=== PATIENT | female | born 1960 | race Caucasian/White ===

== ENCOUNTER 2016-05-23 18:04 | Emergency (ER) | payer OTHER, MEDICARE ==
[~2016-05-23 18:04] MED LIST: ALBU17IN2; ZEGERID
[2016-05-23] MEDS ORDERED: ASPIRIN 81 MG CHEW TABLET As Ordered ONE (18:37)
[2016-05-23] MEDS ORDERED: NITROGLYCERIN 0.4 MG SUBL TABLET As Ordered ONE (18:38)
[2016-05-23 18:39] LABS: BASO # 0.2 K/mm3 (0.0-0.2); BASO % 2.1 % (0.0-1.0); EOS # 0.2 K/mm3 (0.0-0.50); EOS % 2.1 % (0.0-3.0); LARGE UNSTAINED CELL # 0.2 K/mm3 (0.0-0.4); LARGE UNSTAINED CELL % 3.1 % (0.0-4.0); LYMPH # 3.2 K/mm3 (1.5-4.5); LYMPH % 40.7 % (24.0-44.0); MEAN CORPUSCULAR HEMOGLOBIN 29.2 pg (27.0-33.0); MEAN CORPUSCULAR HGB CONC 33.3 g/dl (32.0-36.5); MEAN CORPUSCULAR VOLUME 87.9 fl (80.0-96.0); MONO # 0.5 K/mm3 (0.0-0.8); MONO % 6.4 % (0.0-5.0); NEUTROPHILS # 3.4 K/mm3 (1.8-7.7); NEUTROPHILS % 45.5 % (36.0-66.0); PLATELET COUNT, AUTOMATED 291 k/mm3 (150-450); RED CELL DISTRIBUTION WIDTH 13.4 % (11.5-14.5); WHITE BLOOD COUNT 7.4 K/mm3 (4.0-10.0)
--- NOTE | 2016-05-23 18:54 | REP ---
Clinical: Chest pain. Technique: PA and lateral. Comparison: 11/12/2014. Findings: Mediastinum and cardiac silhouette are within normal limits and stable. Lung rojas demonstrate chronic interstitial changes including left basilar fibroatelectatic changes. No acute consolidation, effusion, or pneumothorax. Skeletal structures demonstrate age-related degenerative changes. Impression: Chronic stable changes including linear fibrosis at the left base. No obvious acute cardiopulmonary process identified. Signed by Sherman Gaona MD 05/23/2016 06:46 P
[2016-05-23 19:02] LABS: INR 0.97
[2016-05-23 19:03] LABS: ANION GAP 6 MEQ/L (8-16); BLOOD UREA NITROGEN 16 MG/DL (7-18); CALCIUM LEVEL 8.8 MG/DL (8.5-10.1); CARBON DIOXIDE LEVEL 28 MEQ/L (21-32); CHLORIDE LEVEL 110 MEQ/L (98-107); CREATININE FOR GFR 0.86 MG/DL (0.55-1.02); GLOMERULAR FILTRATION RATE > 60.0 (>51); GLUCOSE, FASTING 90 MG/DL (70-105); POTASSIUM SERUM 3.9 MEQ/L (3.5-5.1); SODIUM LEVEL 144 MEQ/L (136-145)
--- NOTE | 2016-05-23 20:11 | EDDOCDS ---
Physician Documentation [facility] Name: Marjorie Hodges Age: 55 yrs Sex: Female : 1960 Arrival Date: 05/23/2016 Time: 18:04 Bed 17 Private MD: Brendan Luna A. Disposition: 05/23/16 19:55 Discharged to Home/Self Care. Impression: Chest pain, unspecified. - Condition is Stable. - Discharge Instructions: Nonspecific Chest Pain. - Prescriptions for Aspirin 81 mg - take 1 tablet by ORAL route once daily; 90 tablet. - Medication Reconciliation, Local Pharmacy Hours form. - Follow up: Brendan Luna; When: 1 week; Reason: Recheck today's complaints, Continuance of care. Follow up: Frankie Redmond MD; When: Call to arrange an appointment; Reason: Recheck today's complaints, Continuance of care. - Problem is an acute exacerbation. - Symptoms have improved. Historical: - Allergies: Avelox (Rash); - Home Meds: 1. albuterol sulfate 90 mcg/actuation Inhl HFAA as needed - PMHx: Arthritis; Asthma; GERD; Hypertension; IBS; Lyme Disease; Sleep Apnea w/ CPAP; - PSHx: right shoulder surgery; - Social history: Smoking status: Patient states former smoker of tobacco. No barriers to communication noted, The patient speaks fluent Tajik. - Family history: Not pertinent. - : The pt / caregiver states he / she is not on anticoagulants. Home medication list is obtained from the patient. - Exposure Risk Screening:: None identified. Vital Signs: 05/23 18:05 BP 154 / 80; Pulse 70; Resp 18 S; Temp 96.8(O); Pulse Ox 100% on R/A; Weight 103.42 kg gr2 / 228 lbs (R); Height 5 ft. 7 in. (170.18 cm) (R); Pain 4/10; 18:49 BP 158 / 96; Pulse 64; Resp 18; lf1 18:53 BP 164 / 81; Pulse 65; Pain 4/10; lf1 18:05 Body Mass Index 35.71 (103.42 kg, 170.18 cm) gr2 18:49 Prior to first Nitro dose lf1 MDM: 18:16 ECG WITH READING ER PHYS+CARDIAG ordered. EDMS 18:30 Aspirin Chewable Tablet 324 mg PO once ordered. ke 18:30 NS 0.9% 1000 ml IV at 100 mL/hr continuous ordered. ke 18:30 Nitrostat 0.4 mg Sublingual every 5 minutes; hold if SBP<90mmHg.Document Pain Score ke Response to Each Dose x3 ordered. 18:30 Dial Buffer/Pulse Ox/q 30 min VS ordered. ke 18:30 IV Saline Lock ordered. ke 18:30 Rhythm Strip to chart ordered. ke 18:30 Undress patient appropriately for examination ordered. ke 18:31 Basic Metabolic Profile Ordered. EDMS 18:31 CBC with Diff Ordered. EDMS 18:31 Cardiac Injury Profile Ordered. EDMS 18:31 D-Dimer Quant Ordered. EDMS 18:31 Prothrombin Time Profile\\E\\INR Ordered. EDMS 18:31 Troponin Ordered. EDMS 18:31 Chest, 2 View (pa\\E\\lat) Ordered. EDMS 19:19 Financial registration complete. ks16 19:38 [facility] Payment Agreement was scanned into [employer] and attached to record. ks16 19:39 Basic Metabolic Profile Reviewed. ke 19:39 CBC with Diff Reviewed. ke 19:39 Cardiac Injury Profile Reviewed. ke 19:39 D-Dimer Quant Reviewed. ke 19:39 Prothrombin Time Profile\\E\\INR Reviewed. ke 19:39 Troponin Reviewed. ke 19:39 Chest, 2 View (pa\\E\\lat) Reviewed. ke Administered Medications: 18:48 Drug: Aspirin 324 mg [aspirin 81 mg chewable tablet (4 tabs)] Route: PO; lf1 18:49 Drug: NS 0.9% 1000 ml [sodium chloride 0.9 % intravenous solution] Route: IV; Rate: 100 lf1 mL/hr; Site: right antecubital; 18:49 Drug: Nitrostat 0.4 mg [Nitrostat 0.4 mg sublingual tablet (1 tabs)] Route: Sublingual; lf1 18:53 Follow up: BP 164 / 81; Pulse 65 bpm; Pain 4/10 Adult; after first Nitro dose. Pt. lf1 declines additional Nitro at this time, Reports that she has a headache and her chest pain is now a 4/10. would like to wait 10 minutes before taking another as last time she had it she reports her heart rate "got really low" Signatures: Dispatcher [employer] EDMS Elsner, Jason, GEOLOGICAL TECHNICAL OFFICER GEOLOGICAL TECHNICAL OFFICER Joie BradfordRN RN rs3 Rabia Pierce, Reg Reg ks16 Katie Chapin RN RN cf2 Cristo, Rachell ARANA lf1 The chart was reviewed and I authenticate all verbal orders and agree with the evaluation and treatment provided.Attachments: 19:38 [facility] Payment Agreement ks16 MTDD
--- NOTE | 2016-05-23 20:11 | EDDOCDS ---
Nurse's Notes [facility] Name: Marjorie Hodges Age: 55 yrs Sex: Female : 1960 Arrival Date: 05/23/2016 Time: 18:04 Bed 17 Private MD: Brendan Luna A. Diagnosis: Chest pain, unspecified Presentation: 05/23 18:11 Presenting complaint: Patient states: chest pressure since yesterday, while putting rs3 silveira in the wood stove. noticed increased pressure from epigastrium to upper neck. took aspirin 81 mg today, mild relief with pain. reports of palpitation today. SOB with exertion. 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 Adult Sepsis Screening: The patient does not have new or worsening altered mentation. Patient's respiratory rate is less than 22. Systolic blood pressure is greater than 100. Patient has a qSOFA score of 0- Negative Sepsis Screen. Suicide/Homicide risk assessment- the patient denies having any suicidal and/or homicidal ideations and does not present with any other emotional, behavioral or mental health complaints. Status: Patient is not a field service technician or dependent. Transition of care: patient was not received from another setting of care. Red Flag criteria, patient assessed and taken directly to a bed. 18:11 Acuity: GERALD Level 2 rs3 18:11 Method Of Arrival: Wheelchair rs3 Triage Assessment: 18:17 General: Appears in no apparent distress. Pain: Location: chest. HIV screening NA for rs3 this visit Offered previously. Cardiovascular: Chest pain is described as Pain is 4 out of 10 on a pain scale. radiates neck episodes are intermittent began since yesterday. Historical: - Allergies: Avelox (Rash); - Home Meds: 1. albuterol sulfate 90 mcg/actuation Inhl HFAA as needed - PMHx: Arthritis; Asthma; GERD; Hypertension; IBS; Lyme Disease; Sleep Apnea w/ CPAP; - PSHx: right shoulder surgery; - Social history: Smoking status: Patient states former smoker of tobacco. No barriers to communication noted, The patient speaks fluent Venezuelan. - Family history: Not pertinent. - : The pt / caregiver states he / she is not on anticoagulants. Home medication list is obtained from the patient. - Exposure Risk Screening:: None identified. Screenin:57 Screening information is obtained from the patient. Fall risk: No risks identified. cf2 Assistance ADL's: requires no assistance with activities of daily living. Abuse/DV Screen: The patient / caregiver reports he/she is: not in a situation that causes fear, pain or injury. Nutritional screening: No deficits noted. Advance Directives: Further advance directive information is declined. home support is adequate. Assessment: 18:30 General: Appears in no apparent distress, Behavior is appropriate for age, cooperative. srm Neurological: No deficits noted. Cardiovascular: Rhythm is regular. Cardiovascular: Reports oval pressure feeling to mid chest. Respiratory: Airway is patent Respiratory effort is even, unlabored, Breath sounds are clear bilaterally. GI: Abdomen is non- distended. Derm: No deficits noted. 19:57 Reassessment: Patient appears in no apparent distress at this time. Patient denies pain cf2 at this time. Patient states feeling better. Patient states symptoms have improved. Pain: Denies pain. EENT: No deficits noted. Cardiovascular: No deficits noted. Respiratory: No deficits noted. GI: No deficits noted. : No deficits noted. Vital Signs: 18:05 BP 154 / 80; Pulse 70; Resp 18 S; Temp 96.8(O); Pulse Ox 100% on R/A; Weight 103.42 kg gr2 (R); Height 5 ft. 7 in. (170.18 cm) (R); Pain 4/10; 18:49 BP 158 / 96; Pulse 64; Resp 18; lf1 18:53 BP 164 / 81; Pulse 65; Pain 4/10; lf1 18:05 Body Mass Index 35.71 (103.42 kg, 170.18 cm) gr2 18:49 Prior to first Nitro dose lf1 Vitals: 18:05 Log In Time: May 23, 2016 at 18:05. RN notified that patient meets Red Flag gr2 criteria. ED Course: 18:04 Patient visited by Mary Kate Berry. gr2 18:04 Brendan Luna is Private Physician. gr2 18:04 Patient moved to Waiting gr2 18:06 Patient visited by Mary Kate Berry. gr2 18:06 Patient moved to Pre RCE gr2 18:11 Patient moved to 17 rs3 18:14 Accompanied by Family Member, Patient has correct armband on for positive ct3 identification. Placed in gown. Bed in low position. Call light in reach. Side rails up X 1. shelter monitor on. Pulse ox on. NIBP on. 18:15 Patient visited by Nahomi Salgado PCA. ct3 18:15 Triage Initiated rs3 18:19 EKG done. (by ED staff). Reviewed by Jairo Durham MD. ct3 18:20 Patient visited by Nahomi Salgado PCA. ct3 18:21 [facility] ke 18:21 Patient visited by Jason Perez FNP. ke 18:21 Patient visited by Jason Perez FNP. ke 18:28 Patient visited by Karine Kumar, SUMIT. srm 18:28 The patient / caregiver is instructed regarding the plan of care and ED course. srm 18:28 Inserted saline lock: 20 gauge in right antecubital area and blood collected. srm 18:32 Patient visited by Karine Kumar, SUMIT. srm 19:02 Patient visited by Chadd Ribeiro PCA. kb5 19:08 Katie Chapin,SUMIT is Primary Nurse. cf2 19:08 Patient visited by Katie Chapin,SUMIT. cf2 19:08 Patient visited by Jason Perez FNP. ke 19:12 Chest, 2 View (pa\\E\\lat) Returned. EDMS 19:38 [facility] [place] Agreement was scanned into [employer] and attached to record. ks16 19:39 Patient visited by Jason Perez FNP. ke 19:55 Brendan Luna is Referral Physician. ke 19:55 Frankie Redmond MD is Referral Physician. ke 19:57 Patient visited by Katie Chapin,SUMIT. cf2 19:57 No procedures done that require assistance. cf2 20:10 Jnui Allred DO is Attending Physician. cf2 Administered Medications: 18:48 Drug: Aspirin 324 mg [aspirin 81 mg chewable tablet (4 tabs)] Route: PO; lf1 18:49 Drug: NS 0.9% 1000 ml [sodium chloride 0.9 % intravenous solution] Route: IV; Rate: 100 lf1 mL/hr; Site: right antecubital; 18:49 Drug: Nitrostat 0.4 mg [Nitrostat 0.4 mg sublingual tablet (1 tabs)] Route: Sublingual; lf1 18:53 Follow up: BP 164 / 81; Pulse 65 bpm; Pain 4/10 Adult; after first Nitro dose. Pt. cassidy declines additional Nitro at this time, Reports that she has a headache and her chest pain is now a 4/10. would like to wait 10 minutes before taking another as last time she had it she reports her heart rate "got really low" Intake: Order Results: Lab Order: Basic Metabolic Profile; SPEC'M 05/23/16 18:24 Test: GLUCOSE, FASTING; Value: 90; Range: 70-105; Units: MG/DL; Status: F Test: BLOOD UREA NITROGEN; Value: 16; Range: 7-18; Units: MG/DL; Status: F Test: CREATININE FOR GFR; Value: 0.86; Range: 0.55-1.02; Units: MG/DL; Status: F Test: GLOMERULAR FILTRATION RATE; Value: > 60.0; Range: >51; Status: F Test: SODIUM LEVEL; Value: 144; Range: 136-145; Units: MEQ/L; Status: F Test: POTASSIUM SERUM; Value: 3.9; Range: 3.5-5.1; Units: MEQ/L; Status: F Test: CHLORIDE LEVEL; Value: 110; Range: 98-107; Abnormal: Above high normal; Units: MEQ/L; Status: F Test: CARBON DIOXIDE LEVEL; Value: 28; Range: 21-32; Units: MEQ/L; Status: F Test: ANION GAP; Value: 6; Range: 8-16; Abnormal: Below low normal; Units: MEQ/L; Status: F Test: CALCIUM LEVEL; Value: 8.8; Range: 8.5-10.1; Units: MG/DL; Status: F Test Note: ; Units are mL/min/1.73 m2 Chronic Kidney Disease Staging per NKF: Stage I & II GFR >=60 Normal to Mildly Decreased Stage III GFR 30-59 Moderately Decreased Stage IV GFR 15-29 Severely Decreased Stage V GFR <15 Very Little GFR Left ESRD GFR <15 on CERTIFIED MEDICAL TRANSCRIPTIONIST Lab Order: CBC with Diff; SPEC'M 05/23/16 18:24 Test: WHITE BLOOD COUNT; Value: 7.4; Range: 4.0-10.0; Units: K/mm3; Status: F Test: RED BLOOD COUNT; Value: 4.53; Range: 4.00-5.40; Units: M/mm3; Status: F Test: HEMOGLOBIN; Value: 13.2; Range: 12.0-16.0; Units: g/dl; Status: F Test: HEMATOCRIT; Value: 39.8; Range: 36.0-47.0; Units: %; Status: F Test: MEAN CORPUSCULAR VOLUME; Value: 87.9; Range: 80.0-96.0; Units: fl; Status: F Test: MEAN CORPUSCULAR HEMOGLOBIN; Value: 29.2; Range: 27.0-33.0; Units: pg; Status: F Test: MEAN CORPUSCULAR HGB CONC; Value: 33.3; Range: 32.0-36.5; Units: g/dl; Status: F Test: RED CELL DISTRIBUTION WIDTH; Value: 13.4; Range: 11.5-14.5; Units: %; Status: F Test: PLATELET COUNT, AUTOMATED; Value: 291; Range: 150-450; Units: k/mm3; Status: F Test: NEUTROPHILS %; Value: 45.5; Range: 36.0-66.0; Units: %; Status: F Test: LYMPH %; Value: 40.7; Range: 24.0-44.0; Units: %; Status: F Test: MONO %; Value: 6.4; Range: 0.0-5.0; Abnormal: Above high normal; Units: %; Status: F Test: EOS %; Value: 2.1; Range: 0.0-3.0; Units: %; Status: F Test: BASO %; Value: 2.1; Range: 0.0-1.0; Abnormal: Above high normal; Units: %; Status: F Test: LARGE UNSTAINED CELL %; Value: 3.1; Range: 0.0-4.0; Units: %; Status: F Test: NEUTROPHILS #; Value: 3.4; Range: 1.8-7.7; Units: K/mm3; Status: F Test: LYMPH #; Value: 3.2; Range: 1.5-4.5; Units: K/mm3; Status: F Test: MONO #; Value: 0.5; Range: 0.0-0.8; Units: K/mm3; Status: F Test: EOS #; Value: 0.2; Range: 0.0-0.50; Units: K/mm3; Status: F Test: BASO #; Value: 0.2; Range: 0.0-0.2; Units: K/mm3; Status: F Test: LARGE UNSTAINED CELL #; Value: 0.2; Range: 0.0-0.4; Units: K/mm3; Status: F Lab Order: Cardiac Injury Profile; [facility] 05/23/16 18:24 Test: CPK CREATINE PHOSPHOKINASE; Value: 173; Range: 26-192; Units: U/L; Status: F Test: CK-MB VALUE MASS; Value: 2.2; Range: 0.0-3.6; Units: NG/ML; Status: F Test: MB/CK RELATIVE INDEX; Value: 1.27; Range: < OR =4; Status: F Test Note: ; DIAGNOSIS CRITERIA MMB ng/ml Relative Index (RI) NON-AMI < or = 5 N/A BEAUCHAMP ZONE > 5 < or = 4 AMI > 5 > 4 Lab Order: D-Dimer Quant; [facility] 05/23/16 18:24 Test: D-DIMER QUANT; Value: < 270.0; Range: <500; Units: ng/ml; Status: F Lab Order: Prothrombin Time Profile\\E\\INR; [facility] 05/23/16 18:24 Test: PROTHROMBIN TIME; Value: 13.0; Range: 12.3-14.5; Units: SECONDS; Status: F Test: INR; Value: 0.97; Status: F Test Note: ; THERAPUTIC HUMAN INR VALUES INDICATIONS NORMAL RANGES PROPHYLAXIS/TREATMENT OF: VENOUS THROMBOSIS 2.0-3.0 PULMONARY EMBOLISM 2.0-3.0 PREVENTION OF SYSTEMIC EMBOLISM FROM: TISSUE HEART VALVES 2.0-3.0 ACUTE MYOCARDIAL INFARCTION 2.0-3.0 VALVULAR HEART DISEASE 2.0-3.0 ATRIAL FIBRILLATION 2.0-3.0 MECHANICAL VALVES(HIGH RISK) 2.5-3.5 RECURRENT MYOCARDIAL INFARCTION 2.5-3.5 Lab Order: Troponin; [facility] 05/23/16 1824 Test: TROPONIN I; Value: < 0.02; Range: < 0.10; Units: NG/ML; Status: F Test Note: ; Troponin I Reference Interval for Siemens Promon LOCI: 99th Percentile= 0.00-0.045 ng/ml Risk Stratification: <= 0.10 ng/ml Decreased Risk for Adverse Clinical Events. 0.10-1.50 ng/ml Increased Risk for Adverse Clinical Events. Evaluation of additional criterion and/or repeat testing in 2-6 hours is suggested to rule out myocardial damage. >= 1.50 ng/ml Indicative of Myocardial Injury. Radiology Order: Chest, 2 View (pa\\E\\lat) Test: Chest, 2 View (pa\\E\\lat) REASON FOR EXAMINATION: Chest Pain; Clinical: Chest pain.; ; Technique: PA and lateral.; ; Comparison: 11/12/2014.; ; Findings:; Mediastinum and cardiac silhouette are within normal limits and stable. Lung; roajs demonstrate chronic interstitial changes including left basilar; fibroatelectatic changes. No acute consolidation, effusion, or pneumothorax.; Skeletal structures demonstrate age-related degenerative changes.; ; Impression:; Chronic stable changes including linear fibrosis at the left base. No obvious; acute cardiopulmonary process identified.; ; ; Signed by; Sherman Gaona MD 05/23/2016 06:46 P; Outcome: 19:55 Discharge ordered by Provider. ke 19:57 The following High Risk Discharge criteria are identified: None. Condition: good cf2 Condition: stable Condition: improved. Discharge instructions given to patient, family, Instructed on discharge instructions, follow up and referral plans. Demonstrated understanding of instructions. No special radiology studies were completed. Property :Personal belongings accompany Pt. 20:09 Discharge Assessment: Patient awake, alert and oriented x 3. No cognitive and/or cf2 functional deficits noted. Patient verbalized understanding of disposition instructions. Patient awake and alert. Oriented to person, place and time. patient administered narcotics - no. 20:10 Patient left the ED. cf2 Signatures: Dispatcher [employer] EDMS Karine Kumar, RN RN Jason Bee, PHOTOGRAPH MOUNTER PHOTOGRAPH MOUNTER Chadd Garcia, STEAM TRAP MAN STEAM TRAP MAN kb5 Rachell Lemons RN RN lf1 Joie Smith RN RN rs3 Nahomi Salgado, STEAM TRAP MAN STEAM TRAP MAN ct3 Mary Kate Berry gr2 Rabia Pierce, Reg Reg ks16 Katie Chapin,RN RN cf2 MTDD
--- NOTE | 2016-05-24 08:33 | ECGEPIP ---
Stationary ECG Study [facility] - ED Test Date: 2016-05-23 Pat Name: MIKAELA MOORE Department: Room: - Gender: F Criminal Psychologist: osorio : 1960 Requested By: Jairo Perez Order Number: [id number] Reading MD: Jairo Durham Measurements Intervals [place] Rate: 62 P: 52 IN: 184 QRS: 3 QRSD: 102 T: -71 QT: 418 QTc: 426 Interpretive Statements SINUS RHYTHM WITH OCCASIONAL SUPRAVENTRICULAR PREMATURE COMPLEXES MODERATE T-WAVE ABNORMALITY SIMILAR TO 11/12/14 Electronically Signed On 05-24-2016 8:32:48 EST by Jairo Durham
--- NOTE | 2016-05-25 21:11 | EDDOCDS ---
Nurse's Notes [facility] Name: Marjorie Moore Age: 55 yrs Sex: Female : 1960 Arrival Date: 05/23/2016 Time: 18:04 Bed 17 Private MD: Brendan Luna A. Diagnosis: Chest pain, unspecified Presentation: 05/23 18:11 Presenting complaint: Patient states: chest pressure since yesterday, while putting rs3 silveira in the wood stove. noticed increased pressure from epigastrium to upper neck. took aspirin 81 mg today, mild relief with pain. reports of palpitation today. SOB with exertion. 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 Adult Sepsis Screening: The patient does not have new or worsening altered mentation. Patient's respiratory rate is less than 22. Systolic blood pressure is greater than 100. Patient has a qSOFA score of 0- Negative Sepsis Screen. Suicide/Homicide risk assessment- the patient denies having any suicidal and/or homicidal ideations and does not present with any other emotional, behavioral or mental health complaints. Status: Patient is not a child and family services specialist or dependent. Transition of care: patient was not received from another setting of care. Red Flag criteria, patient assessed and taken directly to a bed. 18:11 Acuity: GERALD Level 2 rs3 18:11 Method Of Arrival: Wheelchair rs3 Triage Assessment: 18:17 General: Appears in no apparent distress. Pain: Location: chest. HIV screening NA for rs3 this visit Offered previously. Cardiovascular: Chest pain is described as Pain is 4 out of 10 on a pain scale. radiates neck episodes are intermittent began since yesterday. Historical: - Allergies: Avelox (Rash); - Home Meds: 1. albuterol sulfate 90 mcg/actuation Inhl HFAA as needed - PMHx: Arthritis; Asthma; GERD; Hypertension; IBS; Lyme Disease; Sleep Apnea w/ CPAP; - PSHx: right shoulder surgery; - Social history: Smoking status: Patient states former smoker of tobacco. No barriers to communication noted, The patient speaks fluent Greenlandic. - Family history: Not pertinent. - : The pt / caregiver states he / she is not on anticoagulants. Home medication list is obtained from the patient. - Exposure Risk Screening:: None identified. Screenin:57 Screening information is obtained from the patient. Fall risk: No risks identified. cf2 Assistance ADL's: requires no assistance with activities of daily living. Abuse/DV Screen: The patient / caregiver reports he/she is: not in a situation that causes fear, pain or injury. Nutritional screening: No deficits noted. Advance Directives: Further advance directive information is declined. home support is adequate. Assessment: 18:30 General: Appears in no apparent distress, Behavior is appropriate for age, cooperative. srm Neurological: No deficits noted. Cardiovascular: Rhythm is regular. Cardiovascular: Reports oval pressure feeling to mid chest. Respiratory: Airway is patent Respiratory effort is even, unlabored, Breath sounds are clear bilaterally. GI: Abdomen is non- distended. Derm: No deficits noted. 19:57 Reassessment: Patient appears in no apparent distress at this time. Patient denies pain cf2 at this time. Patient states feeling better. Patient states symptoms have improved. Pain: Denies pain. EENT: No deficits noted. Cardiovascular: No deficits noted. Respiratory: No deficits noted. GI: No deficits noted. : No deficits noted. Vital Signs: 18:05 BP 154 / 80; Pulse 70; Resp 18 S; Temp 96.8(O); Pulse Ox 100% on R/A; Weight 103.42 kg gr2 (R); Height 5 ft. 7 in. (170.18 cm) (R); Pain 4/10; 18:49 BP 158 / 96; Pulse 64; Resp 18; lf1 18:53 BP 164 / 81; Pulse 65; Pain 4/10; lf1 18:05 Body Mass Index 35.71 (103.42 kg, 170.18 cm) gr2 18:49 Prior to first Nitro dose lf1 Vitals: 18:05 Log In Time: May 23, 2016 at 18:05. RN notified that patient meets Red Flag gr2 criteria. ED Course: 18:04 Patient visited by Mary Kate Berry. gr2 18:04 Brendan Luna is Private Physician. gr2 18:04 Patient moved to Waiting gr2 18:06 Patient visited by Mary Kate Berry. gr2 18:06 Patient moved to Pre RCE gr2 18:11 Patient moved to 17 rs3 18:14 Accompanied by Family Member, Patient has correct armband on for positive ct3 identification. Placed in gown. Bed in low position. Call light in reach. Side rails up X 1. awake overnight monitor on. Pulse ox on. NIBP on. 18:15 Patient visited by Nahomi Salgado PCA. ct3 18:15 Triage Initiated rs3 18:19 EKG done. (by ED staff). Reviewed by Jairo Durham MD. ct3 18:20 Patient visited by Nahomi Salgado PCA. ct3 18:21 [facility]. ke 18:21 Patient visited by Jason Perez FNP. ke 18:21 Patient visited by Jason Perez FNP. ke 18:28 Patient visited by Karine Kumar, SUMIT. srm 18:28 The patient / caregiver is instructed regarding the plan of care and ED course. srm 18:28 Inserted saline lock: 20 gauge in right antecubital area and blood collected. srm 18:32 Patient visited by Karine Kumar, SUMIT. srm 19:02 Patient visited by Chadd Ribeiro PCA. kb5 19:08 Katie Chapin,SUMIT is Primary Nurse. cf2 19:08 Patient visited by Katie Chapin,SUMIT. cf2 19:08 Patient visited by Jason Perez FNP. ke 19:12 Chest, 2 View (pa\\E\\lat) Returned. EDMS 19:38 [facility] Payment Agreement was scanned into [email or web address] and attached to record. ks16 19:39 Patient visited by Jason Perez FNP. ke 19:55 Brendan Luna is Referral Physician. ke 19:55 Frankie Redmond MD is Referral Physician. ke 19:57 Patient visited by Katie Chapin,SUMIT. cf2 19:57 No procedures done that require assistance. cf2 20:10 Juni Allred DO is Attending Physician. cf2 05/24 09:06 EKG-ADULT Returned. EDMS 12:16 T-Sheet-- Draft Copy was scanned into [email or web address] and attached to record. gb 12:17 ECG/EKG was scanned into [email or web address] and attached to record. gb Administered Medications: 05/23 18:48 Drug: Aspirin 324 mg [aspirin 81 mg chewable tablet (4 tabs)] Route: PO; lf1 18:49 Drug: NS 0.9% 1000 ml [sodium chloride 0.9 % intravenous solution] Route: IV; Rate: 100 lf1 mL/hr; Site: right antecubital; 18:49 Drug: Nitrostat 0.4 mg [Nitrostat 0.4 mg sublingual tablet (1 tabs)] Route: Sublingual; lf1 18:53 Follow up: BP 164 / 81; Pulse 65 bpm; Pain 4/10 Adult; after first Nitro dose. Pt. lf1 declines additional Nitro at this time, Reports that she has a headache and her chest pain is now a 4/10. would like to wait 10 minutes before taking another as last time she had it she reports her heart rate "got really low" Intake: Order Results: Lab Order: Basic Metabolic Profile; SPEC'M 05/23/16 18:24 Test: GLUCOSE, FASTING; Value: 90; Range: 70-105; Units: MG/DL; Status: F Test: BLOOD UREA NITROGEN; Value: 16; Range: 7-18; Units: MG/DL; Status: F Test: CREATININE FOR GFR; Value: 0.86; Range: 0.55-1.02; Units: MG/DL; Status: F Test: GLOMERULAR FILTRATION RATE; Value: > 60.0; Range: >51; Status: F Test: SODIUM LEVEL; Value: 144; Range: 136-145; Units: MEQ/L; Status: F Test: POTASSIUM SERUM; Value: 3.9; Range: 3.5-5.1; Units: MEQ/L; Status: F Test: CHLORIDE LEVEL; Value: 110; Range: 98-107; Abnormal: Above high normal; Units: MEQ/L; Status: F Test: CARBON DIOXIDE LEVEL; Value: 28; Range: 21-32; Units: MEQ/L; Status: F Test: ANION GAP; Value: 6; Range: 8-16; Abnormal: Below low normal; Units: MEQ/L; Status: F Test: CALCIUM LEVEL; Value: 8.8; Range: 8.5-10.1; Units: MG/DL; Status: F Test Note: ; Units are mL/min/1.73 m2 Chronic Kidney Disease Staging per NKF: Stage I & II GFR >=60 Normal to Mildly Decreased Stage III GFR 30-59 Moderately Decreased Stage IV GFR 15-29 Severely Decreased Stage V GFR <15 Very Little GFR Left ESRD GFR <15 on REFINISH TECHNICIAN Lab Order: CBC with Diff; SPEC'M 05/23/16 18:24 Test: WHITE BLOOD COUNT; Value: 7.4; Range: 4.0-10.0; Units: K/mm3; Status: F Test: RED BLOOD COUNT; Value: 4.53; Range: 4.00-5.40; Units: M/mm3; Status: F Test: HEMOGLOBIN; Value: 13.2; Range: 12.0-16.0; Units: g/dl; Status: F Test: HEMATOCRIT; Value: 39.8; Range: 36.0-47.0; Units: %; Status: F Test: MEAN CORPUSCULAR VOLUME; Value: 87.9; Range: 80.0-96.0; Units: fl; Status: F Test: MEAN CORPUSCULAR HEMOGLOBIN; Value: 29.2; Range: 27.0-33.0; Units: pg; Status: F Test: MEAN CORPUSCULAR HGB CONC; Value: 33.3; Range: 32.0-36.5; Units: g/dl; Status: F Test: RED CELL DISTRIBUTION WIDTH; Value: 13.4; Range: 11.5-14.5; Units: %; Status: F Test: PLATELET COUNT, AUTOMATED; Value: 291; Range: 150-450; Units: k/mm3; Status: F Test: NEUTROPHILS %; Value: 45.5; Range: 36.0-66.0; Units: %; Status: F Test: LYMPH %; Value: 40.7; Range: 24.0-44.0; Units: %; Status: F Test: MONO %; Value: 6.4; Range: 0.0-5.0; Abnormal: Above high normal; Units: %; Status: F Test: EOS %; Value: 2.1; Range: 0.0-3.0; Units: %; Status: F Test: BASO %; Value: 2.1; Range: 0.0-1.0; Abnormal: Above high normal; Units: %; Status: F Test: LARGE UNSTAINED CELL %; Value: 3.1; Range: 0.0-4.0; Units: %; Status: F Test: NEUTROPHILS #; Value: 3.4; Range: 1.8-7.7; Units: K/mm3; Status: F Test: LYMPH #; Value: 3.2; Range: 1.5-4.5; Units: K/mm3; Status: F Test: MONO #; Value: 0.5; Range: 0.0-0.8; Units: K/mm3; Status: F Test: EOS #; Value: 0.2; Range: 0.0-0.50; Units: K/mm3; Status: F Test: BASO #; Value: 0.2; Range: 0.0-0.2; Units: K/mm3; Status: F Test: LARGE UNSTAINED CELL #; Value: 0.2; Range: 0.0-0.4; Units: K/mm3; Status: F Lab Order: Cardiac Injury Profile; [facility] 05/23/16 18:24 Test: CPK CREATINE PHOSPHOKINASE; Value: 173; Range: 26-192; Units: U/L; Status: F Test: CK-MB VALUE MASS; Value: 2.2; Range: 0.0-3.6; Units: NG/ML; Status: F Test: MB/CK RELATIVE INDEX; Value: 1.27; Range: < OR =4; Status: F Test Note: ; DIAGNOSIS CRITERIA MMB ng/ml Relative Index (RI) NON-AMI < or = 5 N/A BEAUCHAMP ZONE > 5 < or = 4 AMI > 5 > 4 Lab Order: D-Dimer Quant; [facility] 05/23/16 18:24 Test: D-DIMER QUANT; Value: < 270.0; Range: <500; Units: ng/ml; Status: F Lab Order: Prothrombin Time Profile\\E\\INR; [facility] 05/23/16 18:24 Test: PROTHROMBIN TIME; Value: 13.0; Range: 12.3-14.5; Units: SECONDS; Status: F Test: INR; Value: 0.97; Status: F Test Note: ; THERAPUTIC HUMAN INR VALUES INDICATIONS NORMAL RANGES PROPHYLAXIS/TREATMENT OF: VENOUS THROMBOSIS 2.0-3.0 PULMONARY EMBOLISM 2.0-3.0 PREVENTION OF SYSTEMIC EMBOLISM FROM: TISSUE HEART VALVES 2.0-3.0 ACUTE MYOCARDIAL INFARCTION 2.0-3.0 VALVULAR HEART DISEASE 2.0-3.0 ATRIAL FIBRILLATION 2.0-3.0 MECHANICAL VALVES(HIGH RISK) 2.5-3.5 RECURRENT MYOCARDIAL INFARCTION 2.5-3.5 Lab Order: Troponin; SPEC'M 05/23/16 18:24 Test: TROPONIN I; Value: < 0.02; Range: < 0.10; Units: NG/ML; Status: F Test Note: ; Troponin I Reference Interval for Siemens [place] LOCI: 99th Percentile= 0.00-0.045 ng/ml Risk Stratification: <= 0.10 ng/ml Decreased Risk for Adverse Clinical Events. 0.10-1.50 ng/ml Increased Risk for Adverse Clinical Events. Evaluation of additional criterion and/or repeat testing in 2-6 hours is suggested to rule out myocardial damage. >= 1.50 ng/ml Indicative of Myocardial Injury. Radiology Order: EKG-ADULT Test: EKG-ADULT REASON FOR EXAMINATION: chest pressure; Stationary ECG Study; [facility] - ED; ; Test Date: 2016-05-23; Pat Name: MARJORIE MOORE Department:; Room: -; Gender: F Land Mobile Radio Technician: osorio; : 1960 Requested By: Jairo Perez; Order Number: [id number] Reading MD: Jairo Durham; Measurements; Intervals [place]; Rate: 62 P: 52; DC: 184 QRS: 3; QRSD: 102 T: -71; QT: 418; QTc: 426; Interpretive Statements; SINUS RHYTHM WITH OCCASIONAL SUPRAVENTRICULAR PREMATURE COMPLEXES; MODERATE T-WAVE ABNORMALITY; SIMILAR TO 11/12/14; ; Electronically Signed On 05-24-2016 8:32:48 EST by Jairo Durham; Radiology Order: Chest, 2 View (pa\\E\\lat) Test: Chest, 2 View (pa\\E\\lat) REASON FOR EXAMINATION: Chest Pain; Clinical: Chest pain.; ; Technique: PA and lateral.; ; Comparison: 11/12/2014.; ; Findings:; Mediastinum and cardiac silhouette are within normal limits and stable. Lung; rojas demonstrate chronic interstitial changes including left basilar; fibroatelectatic changes. No acute consolidation, effusion, or pneumothorax.; Skeletal structures demonstrate age-related degenerative changes.; ; Impression:; Chronic stable changes including linear fibrosis at the left base. No obvious; acute cardiopulmonary process identified.; ; ; Signed by; Sherman Gaona MD 05/23/2016 06:46 P; Outcome: 19:55 Discharge ordered by Provider. ke 19:57 The following High Risk Discharge criteria are identified: None. Condition: good cf2 Condition: stable Condition: improved. Discharge instructions given to patient, family, Instructed on discharge instructions, follow up and referral plans. Demonstrated understanding of instructions. No special radiology studies were completed. Property :Personal belongings accompany Pt. 20:09 Discharge Assessment: Patient awake, alert and oriented x 3. No cognitive and/or cf2 functional deficits noted. Patient verbalized understanding of disposition instructions. Patient awake and alert. Oriented to person, place and time. patient administered narcotics - no. 20:10 Patient left the ED. cf2 Signatures: Dispatcher [employer] EDMS Karine Kumar, RN RN [facility] Aruna Callejas, Reg Reg gb Jason Perez, LOG PROCESSOR OPERATOR LOG PROCESSOR OPERATOR Chadd Garcia, STRUCTURAL IRON ERECTOR STRUCTURAL IRON ERECTOR kb5 Rachell Leomns,RN RN lf1 Joie Smith,RN RN rs3 Nahomi Salgado, STRUCTURAL IRON ERECTOR STRUCTURAL IRON ERECTOR ct3 Mary Kate Berry gr2 Rabia Pierce, Reg Reg ks16 Katie Chapin,RN RN cf2 Chart Complete MTDD
--- NOTE | 2016-05-25 21:11 | EDDOCDS ---
Physician Documentation [facility] Name: Marjorie Hodges Age: 55 yrs Sex: Female : 1960 Arrival Date: 05/23/2016 Time: 18:04 Bed 17 Private MD: Brendan Luna A. Disposition: 05/23/16 19:55 Discharged to Home/Self Care. Impression: Chest pain, unspecified. - Condition is Stable. - Discharge Instructions: Nonspecific Chest Pain. - Prescriptions for Aspirin 81 mg - take 1 tablet by ORAL route once daily; 90 tablet. - Medication Reconciliation, Local Pharmacy Hours form. - Follow up: Brendan Luna; When: 1 week; Reason: Recheck today's complaints, Continuance of care. Follow up: Frankie Redmond MD; When: Call to arrange an appointment; Reason: Recheck today's complaints, Continuance of care. - Problem is an acute exacerbation. - Symptoms have improved. Historical: - Allergies: Avelox (Rash); - Home Meds: 1. albuterol sulfate 90 mcg/actuation Inhl HFAA as needed - PMHx: Arthritis; Asthma; GERD; Hypertension; IBS; Lyme Disease; Sleep Apnea w/ CPAP; - PSHx: right shoulder surgery; - Social history: Smoking status: Patient states former smoker of tobacco. No barriers to communication noted, The patient speaks fluent Amharic. - Family history: Not pertinent. - : The pt / caregiver states he / she is not on anticoagulants. Home medication list is obtained from the patient. - Exposure Risk Screening:: None identified. Vital Signs: 05/23 18:05 BP 154 / 80; Pulse 70; Resp 18 S; Temp 96.8(O); Pulse Ox 100% on R/A; Weight 103.42 kg gr2 / 228 lbs (R); Height 5 ft. 7 in. (170.18 cm) (R); Pain 4/10; 18:49 BP 158 / 96; Pulse 64; Resp 18; lf1 18:53 BP 164 / 81; Pulse 65; Pain 4/10; lf1 18:05 Body Mass Index 35.71 (103.42 kg, 170.18 cm) gr2 18:49 Prior to first Nitro dose lf1 MDM: 18:16 ECG WITH READING ER PHYS+CARDIAG ordered. EDMS 18:30 Aspirin Chewable Tablet 324 mg PO once ordered. ke 18:30 NS 0.9% 1000 ml IV at 100 mL/hr continuous ordered. ke 18:30 Nitrostat 0.4 mg Sublingual every 5 minutes; hold if SBP<90mmHg.Document Pain Score ke Response to Each Dose x3 ordered. 18:30 Insurance Investigator/Pulse Ox/q 30 min VS ordered. ke 18:30 IV Saline Lock ordered. ke 18:30 Rhythm Strip to chart ordered. ke 18:30 Undress patient appropriately for examination ordered. ke 18:31 Basic Metabolic Profile Ordered. EDMS 18:31 CBC with Diff Ordered. EDMS 18:31 Cardiac Injury Profile Ordered. EDMS 18:31 D-Dimer Quant Ordered. EDMS 18:31 Prothrombin Time Profile\\E\\INR Ordered. EDMS 18:31 Troponin Ordered. EDMS 18:31 Chest, 2 View (pa\\E\\lat) Ordered. EDMS 19:19 Financial registration complete. [email or web address] 19:38 [facility] Payment Agreement was scanned into [employer] and attached to record. ks16 19:39 Basic Metabolic Profile Reviewed. ke 19:39 CBC with Diff Reviewed. ke 19:39 Cardiac Injury Profile Reviewed. ke 19:39 D-Dimer Quant Reviewed. ke 19:39 Prothrombin Time Profile\\E\\INR Reviewed. ke 19:39 Troponin Reviewed. ke 19:39 Chest, 2 View (pa\\E\\lat) Reviewed. ke 05/24 12:16 T-Sheet-- Draft Copy was scanned into [employer] and attached to record. 12:17 ECG/EKG was scanned into [employer] and attached to record. gb Administered Medications: 05/23 18:48 Drug: Aspirin 324 mg [aspirin 81 mg chewable tablet (4 tabs)] Route: PO; lf1 18:49 Drug: NS 0.9% 1000 ml [sodium chloride 0.9 % intravenous solution] Route: IV; Rate: 100 lf1 mL/hr; Site: right antecubital; 18:49 Drug: Nitrostat 0.4 mg [Nitrostat 0.4 mg sublingual tablet (1 tabs)] Route: Sublingual; lf1 18:53 Follow up: BP 164 / 81; Pulse 65 bpm; Pain 4/10 Adult; after first Nitro dose. Pt. lf1 declines additional Nitro at this time, Reports that she has a headache and her chest pain is now a 4/10. would like to wait 10 minutes before taking another as last time she had it she reports her heart rate "got really low" Signatures: Dispatcher [employer] EDAruna Pinzon, Reg Reg gb Jason Perez, RENAL DIALYSIS TECHNICIAN RENAL DIALYSIS TECHNICIAN Joie Bradford RN RN rs3 Rabia Pierce, Reg Reg ks16 Katie Chapin RN RN cf2 Cristo, Rachell ARANA lf1 The chart was reviewed and I authenticate all verbal orders and agree with the evaluation and treatment provided.Attachments: 19:38 [facility] Payment Agreement [email or web address] 05/24 12:16 T-Sheet-- Draft Copy 12:17 ECG/EKG Chart Complete MTDD
--- NOTE | 2016-05-25 21:11 | EDDOCDS ---
Physician Documentation [facility] Name: Marjorie Hodges Age: 55 yrs Sex: Female : 1960 Arrival Date: 05/23/2016 Time: 18:04 Bed 17 Private MD: Brendan Luna A. Disposition: 05/23/16 19:55 Discharged to Home/Self Care. Impression: Chest pain, unspecified. - Condition is Stable. - Discharge Instructions: Nonspecific Chest Pain. - Prescriptions for Aspirin 81 mg - take 1 tablet by ORAL route once daily; 90 tablet. - Medication Reconciliation, Local Pharmacy Hours form. - Follow up: Brendan Luna; When: 1 week; Reason: Recheck today's complaints, Continuance of care. Follow up: Frankie Redmond MD; When: Call to arrange an appointment; Reason: Recheck today's complaints, Continuance of care. - Problem is an acute exacerbation. - Symptoms have improved. Historical: - Allergies: Avelox (Rash); - Home Meds: 1. albuterol sulfate 90 mcg/actuation Inhl HFAA as needed - PMHx: Arthritis; Asthma; GERD; Hypertension; IBS; Lyme Disease; Sleep Apnea w/ CPAP; - PSHx: right shoulder surgery; - Social history: Smoking status: Patient states former smoker of tobacco. No barriers to communication noted, The patient speaks fluent Estonian. - Family history: Not pertinent. - : The pt / caregiver states he / she is not on anticoagulants. Home medication list is obtained from the patient. - Exposure Risk Screening:: None identified. Vital Signs: 05/23 18:05 BP 154 / 80; Pulse 70; Resp 18 S; Temp 96.8(O); Pulse Ox 100% on R/A; Weight 103.42 kg gr2 / 228 lbs (R); Height 5 ft. 7 in. (170.18 cm) (R); Pain 4/10; 18:49 BP 158 / 96; Pulse 64; Resp 18; lf1 18:53 BP 164 / 81; Pulse 65; Pain 4/10; lf1 18:05 Body Mass Index 35.71 (103.42 kg, 170.18 cm) gr2 18:49 Prior to first Nitro dose lf1 MDM: 18:16 ECG WITH READING ER PHYS+CARDIAG ordered. EDMS 18:30 Aspirin Chewable Tablet 324 mg PO once ordered. ke 18:30 NS 0.9% 1000 ml IV at 100 mL/hr continuous ordered. ke 18:30 Nitrostat 0.4 mg Sublingual every 5 minutes; hold if SBP<90mmHg.Document Pain Score ke Response to Each Dose x3 ordered. 18:30 Table Games Floor Supervisor/Pulse Ox/q 30 min VS ordered. ke 18:30 IV Saline Lock ordered. ke 18:30 Rhythm Strip to chart ordered. ke 18:30 Undress patient appropriately for examination ordered. ke 18:31 Basic Metabolic Profile Ordered. EDMS 18:31 CBC with Diff Ordered. EDMS 18:31 Cardiac Injury Profile Ordered. EDMS 18:31 D-Dimer Quant Ordered. EDMS 18:31 Prothrombin Time Profile\\E\\INR Ordered. EDMS 18:31 Troponin Ordered. EDMS 18:31 Chest, 2 View (pa\\E\\lat) Ordered. EDMS 19:19 Financial registration complete. [email or web address] 19:38 [facility] Payment Agreement was scanned into [employer] and attached to record. [email or web address] 19:39 Basic Metabolic Profile Reviewed. ke 19:39 CBC with Diff Reviewed. ke 19:39 Cardiac Injury Profile Reviewed. ke 19:39 D-Dimer Quant Reviewed. ke 19:39 Prothrombin Time Profile\\E\\INR Reviewed. ke 19:39 Troponin Reviewed. ke 19:39 Chest, 2 View (pa\\E\\lat) Reviewed. ke 05/24 12:16 T-Sheet-- Draft Copy was scanned into [employer] and attached to record. 12:17 ECG/EKG was scanned into [employer] and attached to record. gb Administered Medications: 05/23 18:48 Drug: Aspirin 324 mg [aspirin 81 mg chewable tablet (4 tabs)] Route: PO; lf1 18:49 Drug: NS 0.9% 1000 ml [sodium chloride 0.9 % intravenous solution] Route: IV; Rate: 100 lf1 mL/hr; Site: right antecubital; 18:49 Drug: Nitrostat 0.4 mg [Nitrostat 0.4 mg sublingual tablet (1 tabs)] Route: Sublingual; lf1 18:53 Follow up: BP 164 / 81; Pulse 65 bpm; Pain 4/10 Adult; after first Nitro dose. Pt. lf1 declines additional Nitro at this time, Reports that she has a headache and her chest pain is now a 4/10. would like to wait 10 minutes before taking another as last time she had it she reports her heart rate "got really low" Signatures: Dispatcher [employer] EDAruna Pinzon, Reg Reg gb Jason Perez, BALLAST CLEANING OPERATOR BALLAST CLEANING OPERATOR Joie Bradford RN RN rs3 Rabia Pierce, Reg Reg ks16 Katie Chapin RN RN cf2 Cristo, Rachell ARANA lf1 The chart was reviewed and I authenticate all verbal orders and agree with the evaluation and treatment provided.Attachments: 19:38 [facility] Payment Agreement [email or web address] 05/24 12:16 T-Sheet-- Draft Copy 12:17 ECG/EKG Chart Complete MTDD
== END 2016-05-23 20:10 | disposition home or self-care (01) ==
LOC: M ED 18:04
DX: R07.89 Other chest pain (principal); I10 Essential (primary) hypertension; J45.909 Unspecified asthma, uncomplicated; Z87.891 Personal history of nicotine dependence; G47.30 Sleep apnea, unspecified; K21.9 Gastro-esophageal reflux disease without esophagitis; M19.90 Unspecified osteoarthritis, unspecified site; K58.9 Irritable bowel syndrome, unspecified; A69.20 Lyme disease, unspecified; Z88.1 Allergy status to other antibiotic agents

== ENCOUNTER → 2016-07-17 | Outpatient (CLI) | payer OTHER, MEDICARE ==
[~2016-07-17] MED LIST changes: +METHACHOLINE KIT (J7674) INH ONE
--- NOTE | 2016-07-17 09:02 | PFTRPT ---
METHACHOLINE CHALLENGE STUDY INTERPRETATION: Under protocol, methacholine was administered. At a dose of 2.5 mg (13.875 CDUs ), a 20% decline in the FEV1 was noted. The PC20 of 2.12 is significant. Flow rates returned to baseline post bronchodilator administration. IMPRESSION: Positive methacholine challenge study. MTDD
== END ==
LOC: M CARPUL 08:03
PROVIDERS: ATTEND Internal Medicine Pulmonary Disease
DX: R05 Cough (principal)

== ENCOUNTER → 2017-02-20 | Outpatient (CLI) | payer OTHER, MEDICARE ==
[~2017-02-20] MED LIST changes: -METHACHOLINE KIT (J7674) INH ONE
--- NOTE | 2017-02-20 16:39 | REPMRS ---
Patient History The patient states she had a clinical breast exam in 02/2017. Patient is postmenopausal. Family history of colorectal cancer in father and ovarian cancer in mother. Digital Woman Screen Mammo: February 20, 2017 - Exam #: [id number] Bilateral CC and MLO view(s) were taken. Technologist: Zena Ag Technologist Prior study comparison: December 28, 2015, digital woman screen mammo performed at [facility] to [facility]. April 27, 2009, bilateral screening mammogram performed at [facility] to [facility]. FINDINGS: There are scattered fibroglandular densities. There has been no change in the appearance of the mammogram from the prior studies. There is a mild amount of scattered fibroglandular density which is fairly symmetric. There is no interval development of dominant mass, architectural distortion, or clustered microcalcification suggestive of malignancy. ASSESSMENT: BI-RADS/ACR category 1 mammogram. Negative. Recommendation Routine screening mammogram in 1 year (for women over age 40). This mammogram was interpreted with the aid of an FDA-approved computer-aided dectection system. Electronically Signed By: Papi Fontanez MD 02/20/17 0058
== END ==
LOC: M WHC 14:40
PROVIDERS: ATTEND Nurse Practitioner Family
DX: Z12.31 Encounter for screening mammogram for malignant neoplasm of breast (principal)

== ENCOUNTER → 2017-02-20 | Outpatient (REF) | payer OTHER, MEDICARE | LOC: M SFHCWAGY 15:15 | PROVIDERS: ATTEND Nurse Practitioner Family | DX: Z12.4 Encounter for screening for malignant neoplasm of cervix (principal); N95.2 Postmenopausal atrophic vaginitis ==

== ENCOUNTER 2017-11-11 08:13 | Emergency (ER) | payer OTHER, MEDICARE ==
[2017-11-11] MEDS: NORCO, ANEXSIA 5/325MG TABLET (HYDROcodone/ACETAMINOPHEN) PO (09:17)
== END 2017-11-11 09:53 | disposition home or self-care (01) ==
LOC: M ED 08:13
DX: S83.8X1A Sprain of other specified parts of right knee, initial encounter (principal); W01.0XXA Fall on same level from slipping, tripping and stumbling without subsequent striking against object, initial encounter; Y92.009 Unspecified place in unspecified non-institutional (private) residence as the place of occurrence of the external cause; M17.11 Unilateral primary osteoarthritis, right knee; J45.909 Unspecified asthma, uncomplicated; Z98.890 Other specified postprocedural states; Z87.891 Personal history of nicotine dependence; Z88.8 Allergy status to other drugs, medicaments and biological substances; Z91.048 Other nonmedicinal substance allergy status; Z88.1 Allergy status to other antibiotic agents
CPT/HCPCS: 73564

== ENCOUNTER → 2018-02-23 | Outpatient (CLI) | payer OTHER, MEDICARE | LOC: M WHC 13:03 | DX: Z12.31 Encounter for screening mammogram for malignant neoplasm of breast (principal) ==

== ENCOUNTER → 2019-05-18 | Outpatient (REF) | payer MEDICARE ==
[~2019-05-18] MED LIST changes: +ACET500T15 PO; +HYDR-3715 PO
== END ==
LOC: M PLALAB 09:20
PROVIDERS: ATTEND Nurse Practitioner Family
DX: Z12.4 Encounter for screening for malignant neoplasm of cervix (principal)

== ENCOUNTER → 2019-05-18 | Outpatient (CLI) | payer MEDICARE ==
--- NOTE | 2019-05-18 10:46 | REPMRS ---
Patient History The patient states she had a clinical breast exam in 2019. Family history of ovarian cancer in mother, colorectal cancer in father, breast cancer at age 34 in daughter. Digital Woman Screen Mammo: May 18, 2019 - Exam #: [id number] Bilateral CC and MLO view(s) were taken. Technologist: Nafisa Morocho, Technologist Prior study comparison: February 23, 2018, bilateral digital woman screen mammo performed at [facility]. February 20, 2017, digital woman screen mammo performed at [facility]. December 28, 2015, digital woman screen mammo performed at [facility]. FINDINGS: There are scattered fibroglandular densities. There is a stable 5 mm subdermal nodule in the lateral aspect of the right breast unchanged from multiple prior studies. There has been no change in the appearance of the mammogram from the prior studies. There is a mild amount of scattered fibroglandular density which is fairly symmetric. There is no interval development of dominant mass, architectural distortion, or grouped microcalcification suggestive of malignancy. 3-D tomosynthesis shows no additional findings. Assessment: BI-RADS/ACR category 2 mammogram. Benign Findings. Recommendation Routine screening mammogram of both breasts in 1 year (for women over age 40). This patient's Lifetime Breast Cancer Risk is estimated at 11.6 %. This mammogram was interpreted with the aid of an FDA-approved computer-aided dectection system. Electronically Signed By: Papi Fontanez MD 05/18/19 [id number]
== END ==
LOC: M WHC 09:26
PROVIDERS: ATTEND Nurse Practitioner Family
DX: Z12.4 Encounter for screening for malignant neoplasm of cervix (principal); Z12.31 Encounter for screening mammogram for malignant neoplasm of breast; Z80.41 Family history of malignant neoplasm of ovary; Z80.0 Family history of malignant neoplasm of digestive organs; Z80.3 Family history of malignant neoplasm of breast; N63.10 Unspecified lump in the right breast, unspecified quadrant; N95.2 Postmenopausal atrophic vaginitis
CPT/HCPCS: 77063; 77067; 87624; G0123

== ENCOUNTER → 2020-06-07 | Outpatient (CLI) | payer MEDICARE ==
--- NOTE | 2020-06-07 12:41 | REPMRS ---
Patient History The patient states she had a clinical breast exam in May 2020.Family history of ovarian cancer in mother, colorectal cancer in father, breast cancer at age 34 in daughter. Digital Woman Screen Mammo: June 07, 2020 - Exam #: [id number] Bilateral CC and MLO view(s) were taken. Technologist: Zaynab Carlton, Technologist Prior study comparison: May 18, 2019, bilateral digital woman screen mammo performed at [facility]. February 23, 2018, bilateral digital woman screen mammo performed at [facility]. February 20, 2017, digital woman screen mammo performed at [facility]. FINDINGS: There are scattered fibroglandular densities. The Volpara volumetric breast density category is:B. The previously noted 5 mm subdermal nodule in the right breast is again seen unchanged from multiple prior studies. There has been no change in the appearance of the mammogram from the prior studies. There is a mild amount of scattered fibroglandular density which is fairly symmetric. There is no interval development of dominant mass, architectural distortion, or grouped microcalcification suggestive of malignancy. 3-D tomosynthesis shows no additional findings. Assessment: BI-RADS/ACR category 2 mammogram. Benign Findings. Recommendation Routine screening mammogram of both breasts in 1 year (for women over age 40). This patient's [facility] Lifetime Breast Cancer Risk is estimated at 11.2 %. This mammogram was interpreted with the aid of an FDA-approved computer-aided dectection system. Electronically Signed By: Papi Fontanez MD 06/07/20 [id number]
== END ==
LOC: M WHC 11:13
PROVIDERS: ATTEND Nurse Practitioner Family
DX: Z01.419 Encounter for gynecological examination (general) (routine) without abnormal findings (principal); Z12.31 Encounter for screening mammogram for malignant neoplasm of breast; Z80.41 Family history of malignant neoplasm of ovary; Z80.0 Family history of malignant neoplasm of digestive organs; Z80.3 Family history of malignant neoplasm of breast; N63.10 Unspecified lump in the right breast, unspecified quadrant
CPT/HCPCS: 77063; 77067; G0101

== ENCOUNTER 2020-11-11 00:04 | Emergency (ER) | payer MEDICARE ==
[~2020-11-11] VITALS: Ht 167.6 cm; Wt 120.0 kg
[2020-11-11] MEDS ORDERED: ISOVUE-370 76% 100ML VIAL As Ordered ONE (03:12)
[2020-11-11 03:19] LABS: BASO % 0.5 % (0.0-1.0); EOS # 0.1 10^3/uL (0.0-0.5); EOS % 1.3 % (0.0-3.0); HEMATOCRIT 40.4 % (36.0-47.0); HEMOGLOBIN 13.2 g/dl (12.0-15.5); LYMPH # 2.7 10^3/uL (1.5-5.0); LYMPH % 30.5 % (24.0-44.0); MEAN CORPUSCULAR HEMOGLOBIN 29.4 pg (27.0-33.0); MEAN CORPUSCULAR HGB CONC 32.7 g/dl (32.0-36.5); MONO # 0.8 10^3/uL (0.0-0.8); MONO % 9.4 % (2.0-8.0); NEUTROPHILS # 5.1 10^3/uL (1.5-8.5); NEUTROPHILS % 58.1 % (36.0-66.0); PLATELET COUNT, AUTOMATED 305 10^3/uL (150-450); RED BLOOD COUNT 4.49 10^6/uL (4.00-5.40); WHITE BLOOD COUNT 8.7 10^3/uL (4.0-10.0)
[2020-11-11 03:48] LABS: ALBUMIN 3.9 GM/DL (3.2-5.2); BILIRUBIN,DIRECT 0.1 MG/DL (0.0-0.2); BILIRUBIN,TOTAL 0.3 MG/DL (0.2-1.0); TOTAL PROTEIN 7.7 GM/DL (6.4-8.2)
--- NOTE | 2020-11-11 04:50 | REPVR ---
PROCEDURE INFORMATION: Exam: CT Abdomen And Pelvis With Contrast Exam date and time: 11/11/2020 2:45 AM Age: 60 years old Clinical indication: Abdominal pain; Generalized; Additional info: Generalized abdominal pain TECHNIQUE: Imaging protocol: Computed tomography of the abdomen and pelvis with contrast. Radiation optimization: All CT scans at this facility use at least one of these dose optimization techniques: automated exposure control; mA and/or kV adjustment per patient size (includes targeted exams where dose is matched to clinical indication); or iterative reconstruction. Contrast material: ISO; Contrast volume: 100 ml; Contrast route: INTRAVENOUS (IV); COMPARISON: No relevant prior studies available. FINDINGS: Lungs: There are mild bibasilar atelectatic changes versus mild scarring. Mediastinal space: There is a small sliding hiatal hernia. Liver: There is a 6 mm too small to characterize left hepatic lobe hypodensity on axial image 23. Gallbladder and bile ducts: Gallbladder is moderately distended with mild pericholecystic fluid. The CBD is dilated measuring 1.0 cm with distal tapering to 6 mm. There is no intrahepatic biliary ductal dilatation. Pancreas: Normal. No ductal dilation. Spleen: Normal. No splenomegaly. Adrenal glands: Normal. No mass. Kidneys and ureters: There is 2.7 cm left and 1.5 cm right simple renal cysts. There is no hydronephrosis. Stomach and bowel: There are few scattered colonic diverticula. Appendix: No evidence of appendicitis. Intraperitoneal space: Unremarkable. No free air. No significant fluid collection. Vasculature: There is mild aortic and iliac mural calcifications. Lymph nodes: Unremarkable. No enlarged lymph nodes. Urinary bladder: Unremarkable as visualized. Reproductive: Unremarkable as visualized. Bones/joints: There is multilevel lumbar spine facet arthrosis. Soft tissues: Unremarkable. IMPRESSION: 1. Moderately distended gallbladder with pericholecystic fluid suspicious for cholecystitis. Correlation with gallbladder ultrasound is suggested. 2. Dilated proximal CBD/CHD at 1 cm with distal tapering. Distal CBD obstructive process cannot be excluded. Correlate with LFTs and bilirubin level. If indicated MRI with MRCP may be obtained for further evaluation. 3. Small sliding hiatal hernia. 4. Few scattered colonic diverticula. 5. 6 mm too small to characterize left hepatic lobe hypodensity.In a low-risk patient, this lesion is most likely to be benign and no further follow-up is recommended. In a high-risk patient, recommend follow-up MRI in 3-6 months (or earlier if warranted by the patient's specific clinical circumstances). 6. 2.7 cm left and 1.5 cm right simple renal cysts. COMMENTS: Consistent with the [employer]'s Incidental Findings Committee white paper (J Am Rupert Radiol 2018): Any incidental renal lesion less than 1 cm or classified as too small to characterize, or any incidental cystic renal lesion characterized as simple-appearing, is likely benign. No follow-up imaging is recommended for these lesions per consensus recommendations based on imaging criteria. Electronically signed by: Tye Ortiz On 11/11/2020 04:49:24 AM
--- NOTE | 2020-11-11 06:11 | REPVR ---
PROCEDURE INFORMATION: Exam: US Abdomen, Limited; Right Upper Quadrant Exam date and time: 11/11/2020 5:42 AM Age: 60 years old Clinical indication: Abdominal pain; Epigastric TECHNIQUE: Imaging protocol: US abdomen. Real time ultrasound with image documentation. Limited exam focused on the right upper quadrant. COMPARISON: CT ABD/PEL W/IV CONTRAST ONLY 11/11/2020 3:18 AM FINDINGS: Liver: The hepatic parenchyma is mildly echogenic suggestive of fatty infiltration. Gallbladder: The gallbladder is distended containing calcified shadowing gallstones. The gallbladder wall is normal in thickness with no obvious pericholecystic fluid. No sonographic Nieto's sign was elicited. Common bile duct: The CBD measures 5.5 mm in diameter. No stones. No dilation. Pancreas: The pancreas is obscured by bowel gas. Right kidney: The right kidney measures 10.0 x 6.0 x 5.2 cm containing a 1.1 x 1.3 x 1.3 cm cyst. There is no right-sided hydronephrosis. IMPRESSION: 1. Cholelithiasis with no sonographic evidence of acute cholecystitis. Please note that findings are discordant with CT findings demonstrating small pericholecystic fluid. If there is clinical suspicion of acute cholecystitis, HIDA scan may be considered for further evaluation. 2. No biliary ductal dilatation. 3. Fatty infiltration of the liver. Electronically signed by: Tye Ortiz On 11/11/2020 06:11:22 AM
--- NOTE | 2020-11-11 06:35 | ED PDOC ---
Post-Departure Follow-Up tom aguiar and tnig faxed formal report of ct abd/p and gb us for fu Jatinder Akins MD Nov 11, 2020 06:35
[2020-11-11 06:43] VITALS: BP 173/75
== END 2020-11-11 06:44 | disposition home or self-care (01) ==
LOC: M ED 00:04
DX: K80.50 Calculus of bile duct without cholangitis or cholecystitis without obstruction (principal); N28.1 Cyst of kidney, acquired; R19.7 Diarrhea, unspecified; R11.0 Nausea; K76.0 Fatty (change of) liver, not elsewhere classified; K44.0 Diaphragmatic hernia with obstruction, without gangrene; I10 Essential (primary) hypertension; J45.909 Unspecified asthma, uncomplicated; G47.33 Obstructive sleep apnea (adult) (pediatric); K21.9 Gastro-esophageal reflux disease without esophagitis; K58.8 Other irritable bowel syndrome; Z87.891 Personal history of nicotine dependence; Z88.1 Allergy status to other antibiotic agents
CPT/HCPCS: 36415; 74177; 76705; 80047; 80076; 83690; 85025; 93041; 99284; Q9967

== ENCOUNTER → 2020-11-17 | Outpatient (CLI) | payer MEDICARE ==
[~2020-11-17] MED LIST changes: +ALBU8.5H INH; +CHLO125TA PO; +SYMB16INH INH
[2020-11-17 13:58] LABS: BLOOD UREA NITROGEN 13 MG/DL (7-18); CARBON DIOXIDE LEVEL 29 MEQ/L (21-32); CHLORIDE LEVEL 107 MEQ/L (98-107); CHOLESTEROL LEVEL 179 MG/DL (<200); CHOLESTEROL RISK RATIO 3.509 (<5); CREATININE FOR GFR 0.67 MG/DL (0.55-1.30); GLOMERULAR FILTRATION RATE > 60.0 (>45); GLUCOSE, FASTING 80 MG/DL (70-100); HDL CHOLESTEROL 51 MG/DL (>40); LDL CHOLESTEROL 99 MG/DL (<100); NON-HDL-C 128 MG/DL; POTASSIUM SERUM 4.2 MEQ/L (3.5-5.1); SODIUM LEVEL 142 MEQ/L (136-145); TRIGLYCERIDES LEVEL 144 MG/DL (<150)
== END ==
LOC: M PLALAB 10:56
PROVIDERS: ATTEND Physician Assistant
DX: I11.9 Hypertensive heart disease without heart failure (principal)

== ENCOUNTER → 2021-01-09 | Outpatient (CLI) | payer MEDICARE ==
[~2021-01-09] MED LIST changes: -SYMB16INH INH
[2021-01-09 15:47] LABS: HEMATOCRIT 41.9 % (36.0-47.0); HEMOGLOBIN 13.4 g/dl (12.0-15.5); MEAN CORPUSCULAR HEMOGLOBIN 29.6 pg (27.0-33.0); MEAN CORPUSCULAR VOLUME 92.5 fl (80.0-96.0); PLATELET COUNT, AUTOMATED 238 10^3/uL (150-450); RED BLOOD COUNT 4.53 10^6/uL (4.00-5.40); WHITE BLOOD COUNT 5.8 10^3/uL (4.0-10.0)
[2021-01-09 16:19] LABS: ALBUMIN 3.4 GM/DL (3.2-5.2); ALT/SGPT 53 U/L (12-78); BILIRUBIN,TOTAL 0.5 MG/DL (0.2-1.0); BLOOD UREA NITROGEN 12 MG/DL (7-18); CALCIUM LEVEL 8.7 MG/DL (8.8-10.2); CARBON DIOXIDE LEVEL 31 MEQ/L (21-32); CHLORIDE LEVEL 109 MEQ/L (98-107); CREATININE FOR GFR 0.73 MG/DL (0.55-1.30); GLOMERULAR FILTRATION RATE > 60.0 (>45); GLUCOSE, FASTING 96 MG/DL (70-100); SODIUM LEVEL 142 MEQ/L (136-145); TOTAL PROTEIN 6.9 GM/DL (6.4-8.2)
== END ==
LOC: M PLALAB 12:09
PROVIDERS: ATTEND Family Medicine
DX: Z01.818 Encounter for other preprocedural examination (principal)

== ENCOUNTER → 2021-01-18 | Outpatient (CLI) | payer MEDICARE | LOC: M LABSMTC 09:56 | PROVIDERS: ATTEND Anesthesiology | DX: Z01.812 Encounter for preprocedural laboratory examination (principal) ==

== ENCOUNTER 2021-01-23 07:33 | Day surgery (SDC) | payer MEDICARE ==
[~2021-01-23] VITALS: Ht 167.6 cm; Wt 117.8 kg
[~2021-01-23 07:33] MED LIST changes: +LR 1,000 ML IV ONE
[2021-01-23] MEDS ORDERED: SYMB16INH INH (08:14)
[2021-01-23] MEDS ORDERED: fentaNYL 250 MCG/5 ML INJECTION (J3010) As Ordered ONE (08:19)
[2021-01-23] MEDS ORDERED: dexameTHASONE 4 MG/ML 1ML VIAL (J1100 PER 1MG) As Ordered ONE (08:19)
[2021-01-23] MEDS ORDERED: ONDANSETRON 4MG/2ML VIAL As Ordered ONE (08:19)
[2021-01-23] MEDS ORDERED: ROCURONIUM BROMIDE 50 MG/5 ML VIAL As Ordered ONE ×2 (08:19→10:41)
[2021-01-23] MEDS ORDERED: LIDOCAINE 2% 100MG/5ML SDV (FOR ANES.) As Ordered ONE (08:19)
[2021-01-23] MEDS ORDERED: MIDAZOLAM INJ 2MG/2ML VIAL (J2250 PER 1MG) As Ordered ONE (08:19)
[2021-01-23] MEDS ORDERED: propofoL 200 MG/20 ML VIAL As Ordered ONE (08:19)
[2021-01-23] MEDS ORDERED: KETOROLAC 60MG 2ML VIAL As Ordered ONE (08:19)
[2021-01-23] MEDS ORDERED: BUPIVACAINE HCL 0.25% 30ML VIAL As Ordered ONE (09:53)
[2021-01-23] MEDS ORDERED: ePHEDrine SULFATE 25 MG/5 ML(5MG/ML) SYRINGE As Ordered ONE (10:39)
[2021-01-23] MEDS ORDERED: SUGAMMADEX SODIUM 500 MG/5 ML VIAL (BRIDION) As Ordered ONE (10:41)
[2021-01-23] MEDS ORDERED: GLYCOPYRROLATE INJ 0.2 MG/ML 2 ML VIAL As Ordered ONE (10:54)
[2021-01-23] MEDS ORDERED: LR 1,000 ML IV SCH (12:10)
[2021-01-23] MEDS ORDERED: fentaNYL 100 MCG/2 ML INJECTION (J3010) IV PRN (12:10)
[2021-01-23] MEDS ORDERED: ONDANSETRON 4MG/2ML VIAL IV PRN (12:10)
[2021-01-23] MEDS ORDERED: METOCLOPRAMIDE INJ 10MG/2ML VIAL (J2765 PER 1) IV PRN (12:10)
[2021-01-23] MEDS ORDERED: PERCOCET 5MG/325MG TAB PO PRN (12:10)
[2021-01-23] MEDS ORDERED: NORCO, ANEXSIA 5/325MG TABLET (HYDROcodone/ACETAMINOPHEN) PO PRN (12:30)
[2021-01-23] MEDS ORDERED: ACETAMINOPHEN TAB 650MG DOSE (2X325MG) PO PRN (12:30)
[2021-01-23] MEDS ORDERED: HYDR-3715 PO (14:36)
[2021-01-23 15:05] VITALS: BP 137/81
--- NOTE | 2021-01-24 11:09 | RO ---
OPERATIVE NOTE DATE OF OPERATION: 01/23/2021 PREOPERATIVE DIAGNOSIS: Symptomatic gallstones. POSTOPERATIVE DIAGNOSIS: Symptomatic gallstones. PROCEDURE: Laparoscopic cholecystectomy. SURGEON: Phil Weiss MD TRADER: ANESTHESIA: General. INDICATIONS FOR PROCEDURE: The patient is a 60-year-old woman who has had some upper abdominal discomfort. She was found to have gallstones and is now for laparoscopic cholecystectomy. DESCRIPTION OF PROCEDURE: The patient was brought to the operating room and placed on the table in supine position. She was placed under general endotracheal anesthesia. The patient's abdomen was prepped and draped in sterile fashion. 0.25% Marcaine was infiltrated at each of the trocar sites. A short transverse left upper quadrant incision was made and Veress needle was inserted. After positive hanging drop test the abdomen was inflated with CO2 gas. A 5 mm port was placed over the scope and this was advanced into the abdominal wall without difficulty. The laparoscope was inserted. The patient's liver was found to be high up underneath the diaphragms. Portion of the stomach was seen and appeared normal. There was abundant omental fat covering the bowel. An 11 mm port was placed in the midline approximately 6 cm above the umbilicus. Two additional 5 mm ports were placed high in the right upper quadrant. The patient was placed in reverse Trendelenburg position and rolled to the left. Graspers were inserted and the camera was moved to the midline. The edge of the liver was elevated and gallbladder was identified. The gallbladder was grasped and elevated. Dissection then began in the region of the gallbladder neck. There was some fibrofatty tissue encasing the body and neck of the gallbladder and this was opened carefully using the Hook cautery. With careful dissection the cystic duct was clearly identified arising at the gallbladder neck and this was doubly clipped and divided. The cholecystic artery was also identified and this was clipped and divided. With further dissection the gallbladder was freed from the gallbladder bed. This was placed in an Endopouch. The right upper quadrant was inspected. There was no bleeding and no bile leak. The patient was returned to a flat position. The abdomen was desufflated and trocars were removed. The gallbladder was recovered through the supraumbilical site. The midline fascia at the supraumbilical site was closed with running suture of 2-0 PDS. The skin incisions were all closed with buried 4-0 Vicryl and Steri-Strips. Light dressings were applied. The patient tolerated the procedure well. She was awakened in the operating room, extubated and moved to the recovery room in stable condition.
== END 2021-01-23 15:30 | disposition home or self-care (01) ==
LOC: M SDC 07:33
PROVIDERS: ATTEND Surgery
DX: K80.10 Calculus of gallbladder with chronic cholecystitis without obstruction (principal); I10 Essential (primary) hypertension; K21.9 Gastro-esophageal reflux disease without esophagitis; E66.01 Morbid (severe) obesity due to excess calories; G47.33 Obstructive sleep apnea (adult) (pediatric); J45.909 Unspecified asthma, uncomplicated; Z79.899 Other long term (current) drug therapy; F41.9 Anxiety disorder, unspecified; F32.9 Major depressive disorder, single episode, unspecified; Z87.891 Personal history of nicotine dependence; Z88.1 Allergy status to other antibiotic agents; Z91.040 Latex allergy status; Z88.8 Allergy status to other drugs, medicaments and biological substances
CPT/HCPCS: 47562; 88304; J1100; J2250; J2405; J2765; J3010

== ENCOUNTER → 2021-06-27 | Outpatient (CLI) | payer MEDICARE ==
[~2021-06-27] MED LIST changes: -LR 1,000 ML IV ONE; +SYMB16INH INH
== END ==
LOC: M PLAIMG 11:50
PROVIDERS: ATTEND Family Medicine
DX: M25.78 Osteophyte, vertebrae (principal)

== ENCOUNTER → 2021-11-07 | Outpatient (CLI) | payer MEDICARE | LOC: M WHC 10:17 | PROVIDERS: ATTEND Advanced Practice Midwife | DX: Z12.31 Encounter for screening mammogram for malignant neoplasm of breast (principal) ==

== ENCOUNTER → 2022-01-17 | Outpatient (CLI) | payer MEDICARE | LOC: M WUC 11:33 | PROVIDERS: ATTEND Family Medicine | DX: M51.36 Other intervertebral disc degeneration, lumbar region (principal); M51.37 Other intervertebral disc degeneration, lumbosacral region ==

== ENCOUNTER 2022-08-06 16:53 | Emergency (ER) | payer MEDICARE ==
[~2022-08-06] VITALS: Ht 167.6 cm; Wt 120.5 kg
[2022-08-06] MEDS ORDERED: IBUP200T46 PO (17:02)
[2022-08-06 19:23] VITALS: BP 176/80
== END 2022-08-06 19:36 | disposition home or self-care (01) ==
LOC: M ED 16:53
DX: S90.31XA Contusion of right foot, initial encounter (principal); S93.401A Sprain of unspecified ligament of right ankle, initial encounter; W10.9XXA Fall (on) (from) unspecified stairs and steps, initial encounter; Y92.009 Unspecified place in unspecified non-institutional (private) residence as the place of occurrence of the external cause; Y93.01 Activity, walking, marching and hiking; Y99.8 Other external cause status; I10 Essential (primary) hypertension; J45.909 Unspecified asthma, uncomplicated; G47.33 Obstructive sleep apnea (adult) (pediatric); M54.9 Dorsalgia, unspecified; F41.9 Anxiety disorder, unspecified; F32.A Depression, unspecified; Z86.73 Personal history of transient ischemic attack (TIA), and cerebral infarction without residual deficits; Z91.040 Latex allergy status; Z88.6 Allergy status to analgesic agent; Z88.8 Allergy status to other drugs, medicaments and biological substances; Z79.51 Long term (current) use of inhaled steroids; Z79.899 Other long term (current) drug therapy

== ENCOUNTER 2022-10-21 14:26 | Emergency (ER) | payer MEDICARE ==
[~2022-10-21] VITALS: Ht 170.2 cm; Wt 122.4 kg
[2022-10-21 14:26] VITALS: TEMP 98.4
[~2022-10-21 14:26] MED LIST changes: +IBUP200T46 PO
[2022-10-21] MEDS ORDERED: ACET-683 PO (14:46)
[2022-10-21] MEDS ORDERED: MORPHINE 4 MG/ML 1ML VIAL IV ONE (18:10)
[2022-10-21 18:49] LABS: BASO # 0.1 10^3/uL (0.0-0.2); BASO % 0.7 % (0.0-1.0); EOS # 0.2 10^3/uL (0.0-0.5); EOS % 2.8 % (0.0-3.0); HEMATOCRIT 42.2 % (36.0-47.0); HEMOGLOBIN 13.8 g/dl (12.0-15.5); LYMPH # 3.2 10^3/uL (1.5-5.0); LYMPH % 47.3 % (24.0-44.0); MEAN CORPUSCULAR HEMOGLOBIN 29.7 pg (27.0-33.0); MEAN CORPUSCULAR HGB CONC 32.7 g/dl (32.0-36.5); MEAN CORPUSCULAR VOLUME 90.8 fl (80.0-96.0); MONO # 0.7 10^3/uL (0.0-0.8); MONO % 9.7 % (2.0-8.0); NEUTROPHILS # 2.7 10^3/uL (1.5-8.5); NEUTROPHILS % 39.4 % (36.0-66.0); PLATELET COUNT, AUTOMATED 295 10^3/uL (150-450); RED BLOOD COUNT 4.65 10^6/uL (4.00-5.40); WHITE BLOOD COUNT 6.7 10^3/uL (4.0-10.0)
[2022-10-21 19:07] LABS: INR 0.92; PARTIAL THROMBOPLASTIN TIME 29.2 SECONDS (24.8-34.2); PROTHROMBIN TIME 12.6 SECONDS (12.5-14.5)
[2022-10-21 19:09] LABS: LIPASE 55 U/L (12-53)
[2022-10-21 19:11] LABS: ALBUMIN 3.9 G/DL (3.2-5.2); ALKALINE PHOSPHATASE 108 U/L (46-116); ALT/SGPT 35 U/L (7.0-40); AST/SGOT 31 U/L (<34); BILIRUBIN,DIRECT < 0.1 MG/DL (<0.4); BILIRUBIN,TOTAL 0.2 MG/DL (0.3-1.2); CK-MB VALUE MASS 2.6 NG/ML (<3.6); TOTAL PROTEIN 7.3 G/DL (5.7-8.2)
[2022-10-21 19:15] LABS: FREE T4 0.89 NG/DL (0.89-1.76); THYROID STIMULATING HORMONE 3.404 uIU/ML (0.55-4.78)
[2022-10-21 19:17] LABS: CPK CREATINE PHOSPHOKINASE 243 U/L (34-145); MB/CK RELATIVE INDEX 1.06 (< OR =4)
[2022-10-21] MEDS ORDERED: ISOVUE-370 76% 100ML VIAL As Ordered ONE (19:38)
[2022-10-21 22:44] VITALS: BP 180/83; O2SAT 100
[2022-10-21] MEDS ORDERED: PRED20TA PO (22:50)
== END 2022-10-21 22:59 | disposition home or self-care (01) ==
LOC: M ED 14:26
DX: M51.36 Other intervertebral disc degeneration, lumbar region (principal); R00.1 Bradycardia, unspecified; I10 Essential (primary) hypertension; G47.33 Obstructive sleep apnea (adult) (pediatric); F41.9 Anxiety disorder, unspecified; M54.50 Low back pain, unspecified; J45.909 Unspecified asthma, uncomplicated; Z86.79 Personal history of other diseases of the circulatory system; Z91.040 Latex allergy status; Z91.048 Other nonmedicinal substance allergy status; Z79.52 Long term (current) use of systemic steroids; Z79.899 Other long term (current) drug therapy
CPT/HCPCS: 71101; 74177; 80047; 80076; 81000; 81015; 82550; 82553; 83690; 83735; 83880; 84439; 84443; 84484; 85025; 85610; 85730; 93005; 96374; 99284; Q9967

== ENCOUNTER 2023-01-24 11:21 | Emergency (ER) | payer MEDICARE ==
[~2023-01-24] VITALS: Ht 170.2 cm; Wt 120.5 kg
[~2023-01-24 11:21] MED LIST changes: +ACET-683 PO; +PRED20TA PO
[2023-01-24] MEDS ORDERED: KETOROLAC 30 MG/ML 1ML VIAL IV ONE (12:30)
[2023-01-24] MEDS ORDERED: NS 1,000 ML IV ONE (12:30)
[2023-01-24] MEDS ORDERED: ONDANSETRON 4MG 2ML VIAL IV ONE (12:30)
[2023-01-24 13:02] LABS: BASO % 0.7 % (0.0-1.0); EOS # 0.2 10^3/uL (0.0-0.5); EOS % 2.8 % (0.0-3.0); HEMATOCRIT 39.7 % (36.0-47.0); HEMOGLOBIN 13.2 g/dl (12.0-15.5); LYMPH # 2.4 10^3/uL (1.5-5.0); LYMPH % 44.6 % (24.0-44.0); MEAN CORPUSCULAR HEMOGLOBIN 29.9 pg (27.0-33.0); MEAN CORPUSCULAR HGB CONC 33.2 g/dl (32.0-36.5); MEAN CORPUSCULAR VOLUME 89.8 fl (80.0-96.0); MONO # 0.6 10^3/uL (0.0-0.8); MONO % 10.5 % (2.0-8.0); NEUTROPHILS # 2.2 10^3/uL (1.5-8.5); NEUTROPHILS % 41.2 % (36.0-66.0); PLATELET COUNT, AUTOMATED 271 10^3/uL (150-450); RED BLOOD COUNT 4.42 10^6/uL (4.00-5.40); WHITE BLOOD COUNT 5.4 10^3/uL (4.0-10.0)
[2023-01-24] MEDS ORDERED: ISOVUE-370 76% 100ML VIAL As Ordered ONE (13:11)
[2023-01-24 13:32] LABS: ALBUMIN 3.8 G/DL (3.2-5.2); BILIRUBIN,DIRECT 0.2 MG/DL (<0.4); BILIRUBIN,TOTAL 0.4 MG/DL (0.3-1.2); TOTAL PROTEIN 7.1 G/DL (5.7-8.2)
[2023-01-24 13:33] LABS: RSV AMPLIFICATION NEGATIVE (NEGATIVE)
[2023-01-24] MEDS ORDERED: OMEP40CA4 PO (15:11)
[2023-01-24 15:44] VITALS: BP 160/80; TEMP 96.2; O2SAT 98
== END 2023-01-24 16:05 | disposition home or self-care (01) ==
LOC: M ED 11:21
DX: K29.70 Gastritis, unspecified, without bleeding (principal); I10 Essential (primary) hypertension; K21.9 Gastro-esophageal reflux disease without esophagitis; J45.909 Unspecified asthma, uncomplicated; K58.9 Irritable bowel syndrome, unspecified; F41.9 Anxiety disorder, unspecified; F32.A Depression, unspecified; Z91.040 Latex allergy status; Z91.048 Other nonmedicinal substance allergy status
CPT/HCPCS: 74177; 80047; 80076; 81001; 83605; 83690; 85025; 87086; 87631; 96361; 96374; 96375; 99284; J1885; J2405; Q9967

== ENCOUNTER → 2023-09-02 | Outpatient (CLI) | payer MEDICARE ==
[~2023-09-02] MED LIST changes: +OMEP40CA4 PO
[2023-09-02 14:03] LABS: BASO # 0.1 10^3/uL (0.0-0.2); BASO % 0.9 % (0.0-1.0); EOS # 0.1 10^3/uL (0.0-0.5); EOS % 2.1 % (0.0-3.0); HEMATOCRIT 42.2 % (36.0-47.0); HEMOGLOBIN 13.8 g/dl (12.0-15.5); LYMPH # 2.4 10^3/uL (1.5-5.0); MEAN CORPUSCULAR HEMOGLOBIN 29.9 pg (27.0-33.0); MEAN CORPUSCULAR HGB CONC 32.7 g/dl (32.0-36.5); MEAN CORPUSCULAR VOLUME 91.5 fl (80.0-96.0); MONO # 0.5 10^3/uL (0.0-0.8); MONO % 9.2 % (2.0-8.0); NEUTROPHILS # 2.5 10^3/uL (1.5-8.5); NEUTROPHILS % 44.9 % (36.0-66.0); PLATELET COUNT, AUTOMATED 294 10^3/uL (150-450); RED BLOOD COUNT 4.61 10^6/uL (4.00-5.40); WHITE BLOOD COUNT 5.6 10^3/uL (4.0-10.0)
[2023-09-02 14:27] LABS: ALBUMIN 3.9 G/DL (3.2-5.2); ALKALINE PHOSPHATASE 101 U/L (46-116); ALT/SGPT 24 U/L (7.0-40); AST/SGOT 19 U/L (<34); BILIRUBIN,TOTAL 0.5 MG/DL (0.3-1.2); BLOOD UREA NITROGEN 13 MG/DL (9-23); CALCIUM LEVEL 9.1 MG/DL (8.3-10.6); CARBON DIOXIDE LEVEL 28 MMOL/L (20-31); CHLORIDE LEVEL 105 MMOL/L (98-107); CHOLESTEROL LEVEL 147 MG/DL (<200); CHOLESTEROL RISK RATIO 2.46 (<5); CREATININE FOR GFR 0.81 MG/DL (0.55-1.30); GLOMERULAR FILTRATION RATE > 60.0 (>45); GLUCOSE, FASTING 90 MG/DL (74-106); HDL CHOLESTEROL 59.6 MG/DL (>40); NON-HDL-C 87.4 MG/DL; POTASSIUM SERUM 4.3 MMOL/L (3.5-5.1); SODIUM LEVEL 141 MMOL/L (136-145); TOTAL PROTEIN 7.1 G/DL (5.7-8.2); TRIGLYCERIDES LEVEL 82 MG/DL (<150)
== END ==
LOC: M PLALAB 11:17
PROVIDERS: ATTEND Family Medicine
DX: I10 Essential (primary) hypertension (principal)

== ENCOUNTER → 2024-02-12 | Outpatient (CLI) | payer MEDICARE ==
[2024-02-12 18:32] LABS: BASO # 0.1 10^3/uL (0.0-0.2); BASO % 0.5 % (0.0-1.0); EOS % 0.1 % (0.0-3.0); HEMATOCRIT 42.7 % (36.0-47.0); HEMOGLOBIN 14.1 g/dl (12.0-15.5); LYMPH # 1.6 10^3/uL (1.5-5.0); LYMPH % 17.9 % (24.0-44.0); MEAN CORPUSCULAR HEMOGLOBIN 30.5 pg (27.0-33.0); MEAN CORPUSCULAR VOLUME 92.2 fl (80.0-96.0); MONO # 0.3 10^3/uL (0.0-0.8); MONO % 2.9 % (2.0-8.0); NEUTROPHILS # 7.1 10^3/uL (1.5-8.5); NEUTROPHILS % 77.9 % (36.0-66.0); PLATELET COUNT, AUTOMATED 331 10^3/uL (150-450); RED BLOOD COUNT 4.63 10^6/uL (4.00-5.40); WHITE BLOOD COUNT 9.2 10^3/uL (4.0-10.0)
[2024-02-12 19:04] LABS: BLOOD UREA NITROGEN 14 MG/DL (9-23); CALCIUM LEVEL 9.7 MG/DL (8.3-10.6); CARBON DIOXIDE LEVEL 30 MMOL/L (20-31); CHLORIDE LEVEL 106 MMOL/L (98-107); CREATININE FOR GFR 0.86 MG/DL (0.55-1.30); GLOMERULAR FILTRATION RATE > 60.0 (>45); GLUCOSE, FASTING 145 MG/DL (74-106); SODIUM LEVEL 141 MMOL/L (136-145)
== END ==
LOC: M PLALAB 15:23
PROVIDERS: ATTEND Family Medicine
DX: K11.20 Sialoadenitis, unspecified (principal)

== ENCOUNTER → 2024-02-16 | Outpatient (CLI) | payer MEDICARE ==
[~2024-02-16] MED LIST changes: +ISOVUE-370 76% 100ML VIAL As Ordered ONE
== END ==
LOC: M RAD 08:07
PROVIDERS: ATTEND Family Medicine
DX: K11.20 Sialoadenitis, unspecified (principal)
CPT/HCPCS: 70491; Q9967

== ENCOUNTER → 2024-03-22 | Outpatient (CLI) | payer MEDICARE ==
[~2024-03-22] MED LIST changes: -ISOVUE-370 76% 100ML VIAL As Ordered ONE
== END ==
LOC: M PLAIMG 12:05
PROVIDERS: ATTEND Family Medicine
DX: M25.561 Pain in right knee (principal)

== ENCOUNTER → 2024-03-29 | Outpatient (REF) | payer MEDICARE | LOC: M LAB REF 17:15 | PROVIDERS: ATTEND Otolaryngology | DX: D37.030 Neoplasm of uncertain behavior of the parotid salivary glands (principal) ==

== ENCOUNTER → 2024-07-01 | Outpatient (CLI) | payer MEDICARE ==
[2024-07-01 11:25] LABS: CHOLESTEROL RISK RATIO 2.57 (<5); HDL CHOLESTEROL 66.3 MG/DL (>40); LDL CHOLESTEROL 87.5 MG/DL (<100); NON-HDL-C 104.7 MG/DL
== END ==
LOC: M PLALAB 07:54
PROVIDERS: ATTEND Registered Nurse
DX: Z13.220 Encounter for screening for lipoid disorders (principal); Z79.899 Other long term (current) drug therapy

== ENCOUNTER → 2024-07-01 | Outpatient (CLI) | payer MEDICARE ==
[~2024-07-01] MED LIST changes: +TRAM50TA2 PO; +VENTAER; +[UNRECOGNIZED DRUG - OTHER]
[2024-07-01 10:56] LABS: BASO # 0.1 10^3/uL (0.0-0.2); BASO % 1.2 % (0.0-1.0); EOS # 0.2 10^3/uL (0.0-0.5); EOS % 2.8 % (0.0-3.0); HEMATOCRIT 41.6 % (36.0-47.0); HEMOGLOBIN 13.6 g/dl (12.0-15.5); LYMPH # 2.5 10^3/uL (1.5-5.0); LYMPH % 43.9 % (24.0-44.0); MEAN CORPUSCULAR HEMOGLOBIN 29.8 pg (27.0-33.0); MEAN CORPUSCULAR HGB CONC 32.7 g/dl (32.0-36.5); MEAN CORPUSCULAR VOLUME 91.2 fl (80.0-96.0); MONO # 0.6 10^3/uL (0.0-0.8); MONO % 10.3 % (2.0-8.0); NEUTROPHILS # 2.4 10^3/uL (1.5-8.5); NEUTROPHILS % 41.6 % (36.0-66.0); PLATELET COUNT, AUTOMATED 295 10^3/uL (150-450); RED BLOOD COUNT 4.56 10^6/uL (4.00-5.40); WHITE BLOOD COUNT 5.7 10^3/uL (4.0-10.0)
[2024-07-01 10:57] LABS: ALBUMIN 3.6 G/DL (3.2-5.2); ALKALINE PHOSPHATASE 103 U/L (35-104); ALT/SGPT 26 U/L (7.0-40); AST/SGOT 18 U/L (<34); BILIRUBIN,TOTAL 0.5 MG/DL (0.3-1.2); BLOOD UREA NITROGEN 14 MG/DL (9-23); CALCIUM LEVEL 8.8 MG/DL (8.3-10.6); CARBON DIOXIDE LEVEL 30 MMOL/L (20-31); CHLORIDE LEVEL 106 MMOL/L (98-107); CREATININE FOR GFR 0.69 MG/DL (0.55-1.30); GLOMERULAR FILTRATION RATE > 60.0 (>45); GLUCOSE, FASTING 103 MG/DL (74-106); POTASSIUM SERUM 4.5 MMOL/L (3.5-5.1); SODIUM LEVEL 143 MMOL/L (136-145)
== END ==
LOC: M PLALAB 07:52
PROVIDERS: ATTEND Family Medicine
DX: Z01.818 Encounter for other preprocedural examination (principal); Z13.220 Encounter for screening for lipoid disorders; Z79.899 Other long term (current) drug therapy

== ENCOUNTER → 2024-08-10 | Outpatient (CLI) | payer MEDICARE | LOC: M CARPUL 13:20 | PROVIDERS: ATTEND Registered Nurse | DX: R94.31 Abnormal electrocardiogram [ECG] [EKG] (principal); I11.9 Hypertensive heart disease without heart failure ==

== ENCOUNTER → 2024-09-14 | Outpatient (CLI) | payer MEDICARE | LOC: M WHC 14:20 | PROVIDERS: ATTEND Family Medicine | DX: Z12.31 Encounter for screening mammogram for malignant neoplasm of breast (principal); R92.323 Mammographic fibroglandular density, bilateral breasts; N63.20 Unspecified lump in the left breast, unspecified quadrant ==

== ENCOUNTER → 2024-09-28 | Outpatient (CLI) | payer MEDICARE | LOC: M WHC 13:07 | PROVIDERS: ATTEND Family Medicine | DX: R92.2 Inconclusive mammogram (principal); N60.02 Solitary cyst of left breast ==

== ENCOUNTER → 2025-02-10 | Outpatient (CLI) | payer MEDICARE ==
[~2025-02-10] MED LIST changes: +ISOVUE-370 76% 100 ML VIAL ONE
== END ==
LOC: M PLAIMG 08:55
PROVIDERS: ATTEND Otolaryngology
DX: D11.0 Benign neoplasm of parotid gland (principal)
CPT/HCPCS: 70491; Q9967

== ENCOUNTER → 2025-03-03 | Outpatient (CLI) | payer MEDICARE ==
[~2025-03-03] MED LIST changes: -ISOVUE-370 76% 100 ML VIAL ONE
[2025-03-03 18:38] LABS: BASO # 0.1 10^3/uL (0.0-0.2); BASO % 0.7 % (0.0-1.0); EOS # 0.2 10^3/uL (0.0-0.5); EOS % 2.5 % (0.0-3.0); LYMPH # 2.9 10^3/uL (1.5-5.0); LYMPH % 42.7 % (24.0-44.0); MONO # 0.6 10^3/uL (0.0-0.8); MONO % 9.3 % (2.0-8.0); NEUTROPHILS # 3.0 10^3/uL (1.5-8.5); NEUTROPHILS % 44.5 % (36.0-66.0); PLATELET COUNT, AUTOMATED 303 10^3/uL (150-450)
[2025-03-03 19:03] LABS: CALCIUM LEVEL 8.8 MG/DL (8.3-10.6); CARBON DIOXIDE LEVEL 30.0 MMOL/L (20-31); CHLORIDE LEVEL 105.0 MMOL/L (98-107); CREATININE FOR GFR 0.82 MG/DL (0.55-1.30); GLOMERULAR FILTRATION RATE 79.3 (>45); POTASSIUM SERUM 4.1 MMOL/L (3.5-5.1); SODIUM LEVEL 144.0 MMOL/L (136-145)
== END ==
LOC: M PLALAB 16:45
PROVIDERS: ATTEND Family Medicine
DX: Z01.818 Encounter for other preprocedural examination (principal)

== ENCOUNTER → 2025-03-04 | Outpatient (REF) | payer MEDICARE | LOC: M SFHCWAGY 17:11 | PROVIDERS: ATTEND Nurse Practitioner Family | DX: Z12.12 Encounter for screening for malignant neoplasm of rectum (principal) ==

== ENCOUNTER 2025-04-28 10:11 | Observation (INO) | payer MEDICARE ==
[~2025-04-28] VITALS: Ht 167.6 cm; Wt 123.4 kg
[~2025-04-28 10:11] MED LIST changes: -VENTAER; +VENTAER INH
[2025-04-28] MEDS: LR 1,000 ML IV SCH ×2 (11:10→20:33)
[2025-04-28] MEDS ORDERED: ACETAMINOPHEN 1000MG/100ML IV BAG As Ordered ONE (13:19)
[2025-04-28] MEDS ORDERED: ONDANSETRON 4MG/2ML VIAL As Ordered ONE (13:20)
[2025-04-28] MEDS ORDERED: LIDOCAINE 2% 100 MG/5 ML SDV (FOR ANES.) As Ordered ONE (13:20)
[2025-04-28] MEDS ORDERED: MIDAZOLAM INJ 2 MG/2 ML VIAL As Ordered ONE (13:21)
[2025-04-28] MEDS ORDERED: dexAMETHasone 4 MG/ML 1 ML VIAL As Ordered ONE (13:29)
[2025-04-28] MEDS ORDERED: ROCURONIUM BROMIDE 50MG/5ML VIAL As Ordered ONE (14:25)
[2025-04-28] MEDS ORDERED: SUCCINYLCHOLINE 100MG/5ML SYRINGE As Ordered ONE (14:25)
[2025-04-28] MEDS ORDERED: GLUCAGON INJ 1 MG VIAL SC PRN (14:50)
[2025-04-28] MEDS ORDERED: GLUCOSE 4 GM CHEW PO PRN (14:50)
[2025-04-28] MEDS ORDERED: INSULIN LISPRO (NovoLOG) PER UNIT SC PRN (14:50)
[2025-04-28] MEDS: DEXTROSE 50% 50 ML SYRINGE IV STA (14:52)
[2025-04-28] MEDS: DEXTROSE 50% 50 ML SYRINGE IV PRN (15:00)
[2025-04-28] MEDS ORDERED: dexmedeTOMIDine (4 MCG/ML) 200 MCG/50 ML BTL As Ordered ONE (16:35)
[2025-04-28] MEDS ORDERED: LABETALOL 100 MG/20 ML VIAL As Ordered ONE (16:39)
[2025-04-28] MEDS ORDERED: DESFLURANE 240 ML INHALANT As Ordered ONE (16:54)
[2025-04-28] MEDS: EPINEPHrine 1 MG/ML INJ 30 ML MD-VIAL As Ordered ONE (17:10)
[2025-04-28] MEDS: METHYLENE BLUE 0.5% (5 MG/ML) 10 ML AMP As Ordered ONE (17:10)
[2025-04-28] MEDS: LIDOCAINE W/EPINEPHrine 1% 20 ML VIAL As Ordered ONE (18:18)
[2025-04-28] MEDS ORDERED: ONDANSETRON 4MG/2ML VIAL IV PRN ×2 (19:10→22:20)
[2025-04-28 19:45] VITALS: BP 155/70; TEMP 98.3; O2SAT 93
[2025-04-28 20:11] VITALS: BP 178/93; TEMP 98.2; O2SAT 96
[2025-04-28 20:27] VITALS: BP 156/72; TEMP 98
[2025-04-28 22:00] VITALS: BP 167/77; TEMP 98.2; O2SAT 96
[2025-04-28] MEDS: dexAMETHasone 4 MG/ML 1 ML VIAL IV SCH (22:06)
[2025-04-28] MEDS ORDERED: MORPHINE 2 MG/ML 1 ML VIAL IV PRN (22:20)
[2025-04-28] MEDS ORDERED: [UNRECOGNIZED DRUG - OTHER] PO (22:39)
[2025-04-28] MEDS: PERCOCET 5MG/325MG TAB PO PRN (22:42)
[2025-04-28 23:06] VITALS: BP 170/78; TEMP 97.1; O2SAT 96
[2025-04-28] MEDS ORDERED: HOME MED LIST COMPLETE! XX SCH (23:10)
[2025-04-28 23:31] LABS: BASO # 0.0 10^3/uL (0.0-0.2); BASO % 0.1 % (0.0-1.0); EOS # 0.0 10^3/uL (0.0-0.5); EOS % 0.0 % (0.0-3.0); LYMPH # 1.3 10^3/uL (1.5-5.0); LYMPH % 17.3 % (24.0-44.0); MONO # 0.1 10^3/uL (0.0-0.8); MONO % 1.3 % (2.0-8.0); NEUTROPHILS # 6.0 10^3/uL (1.5-8.5); NEUTROPHILS % 80.9 % (36.0-66.0); PLATELET COUNT, AUTOMATED 283 10^3/uL (150-450)
[2025-04-28 23:50] LABS: ALT/SGPT 29 U/L (7.0-40); AST/SGOT 26 U/L (<34); C REACTIVE PROTEIN QUANTITATIV 0.59 MG/DL (<1.0); CALCIUM LEVEL 8.6 MG/DL (8.3-10.6); CARBON DIOXIDE LEVEL 27 MMOL/L (20-31); CHLORIDE LEVEL 103 MMOL/L (98-107); CREATININE FOR GFR 0.69 MG/DL (0.55-1.30); GLOMERULAR FILTRATION RATE > 90.0 (>45); POTASSIUM SERUM 4.1 MMOL/L (3.5-5.1); SODIUM LEVEL 140 MMOL/L (136-145)
[2025-04-29 01:05] VITALS: BP 157/74; TEMP 98; O2SAT 96
[2025-04-29 02:08] VITALS: BP 149/76; TEMP 97.8
[2025-04-29 03:39] VITALS: BP 155/63; TEMP 97.8; O2SAT 94
[2025-04-29] MEDS: dexAMETHasone 4 MG/ML 1 ML VIAL IV ONE (05:05)
[2025-04-29 05:43] LABS: PLATELET COUNT, AUTOMATED 289 10^3/uL (150-450)
[2025-04-29 05:59] LABS: ALT/SGPT 27 U/L (7.0-40); AST/SGOT 21 U/L (<34); CALCIUM LEVEL 8.7 MG/DL (8.3-10.6); CARBON DIOXIDE LEVEL 26 MMOL/L (20-31); CHLORIDE LEVEL 104 MMOL/L (98-107); CREATININE FOR GFR 0.63 MG/DL (0.55-1.30); GLOMERULAR FILTRATION RATE > 90.0 (>45); MAGNESIUM LEVEL 1.9 MG/DL (1.8-2.4); POTASSIUM SERUM 4.2 MMOL/L (3.5-5.1); SODIUM LEVEL 140 MMOL/L (136-145)
[2025-04-29 08:08] VITALS: BP 156/67; TEMP 98.7; O2SAT 93
[2025-04-29] MEDS: ENOXAPARIN 40 MG/0.4 ML SYRINGE (J1650 PER 10MG) SC SCH (08:13)
[2025-04-29 12:15] VITALS: BP 135/63; TEMP 98.2; O2SAT 95
[2025-04-29 16:00] VITALS: BP 131/63; O2SAT 97
[2025-04-29] MEDS ORDERED: BACI500O8 TOP (16:40)
[2025-04-29] MEDS ORDERED: ACET-683 PO (16:40)
[2025-04-29] MEDS ORDERED: OXYC-517 PO (16:40)
== END 2025-04-29 18:55 | disposition home or self-care (01) ==
LOC: M SDC 10:11 → INTOOBSV 19:48 → M PCU 19:48
PROVIDERS: ADMIT Otolaryngology; ATTEND Student in an Organized Health Care Education/Training Program
DX: D11.0 Benign neoplasm of parotid gland (principal); I10 Essential (primary) hypertension; K58.8 Other irritable bowel syndrome; J45.909 Unspecified asthma, uncomplicated; G47.33 Obstructive sleep apnea (adult) (pediatric); Z79.51 Long term (current) use of inhaled steroids; Z79.899 Other long term (current) drug therapy; Z91.040 Latex allergy status; Z88.8 Allergy status to other drugs, medicaments and biological substances; Z88.1 Allergy status to other antibiotic agents
CPT/HCPCS: 36415; 42415; 80053; 83735; 84145; 85025; 85027; 86140; 88307; 96361; 96372; 96374; 96376; G0378; J0131; J0165; J0330; J1100; J1650; J1920; J2250; J2405; J3010; J3490